=== PATIENT | male | born 1965 | race Caucasian/White ===

== ENCOUNTER → 2017-02-16 14:05 | Outpatient (CLI) | payer OTHER, SELFPAY ==
--- NOTE | 2017-02-16 14:13 | MR_ITS ---
MR cervical spine wo con HISTORY: Neck pain with right-sided arm pain with numbness and tingling ORDERING PHYSICIAN: Pro Sanchez MD PATIENT AGE: 51 years COMPARISON: Plain films of 01/27/2017. Prior CT scan 11/18/2010 TECHNIQUE: Standard multiplanar multiecho sequences are performed without contrast. 3-D MIP and myelographic images are also rendered and reviewed FINDINGS: The craniocervical junction has an unremarkable appearance. There is normal alignment. C2-C3: Unremarkable. C3-C4: Degenerative disc disease with mild concentric bulging disc. There is a small right paracentral and foraminal disc osteophyte complex causing right lateral recess and foraminal narrowing C4-C5: Unremarkable. C5-C6: Degenerative disc disease with disc desiccation and mild posterior subluxation of C5 of approximately 2 mm. There is decrease T1 and increased T2 signal involving the mid and inferior aspect of C5 and the superior aspect of C6 consistent with type I discogenic endplate changes. There is concentric bulging disc at this level with narrowing of the canal at 10 mm. There is bilateral uncovertebral hypertrophy with bilateral lateral recess and foraminal narrowing. There is minimal impingement upon the anterior aspect of the cord from the bulging disc and canal stenosis with minimal contour deformity C6-C7 and C7-T1 has an unremarkable appearance. There is some mild bulging disc at T2-T3. IMPRESSION: 1. Cervical spondylosis as described above with degenerative disc disease and bulging disc and uncovertebral hypertrophy. 2. C3-C4: Degenerative disc disease with mild concentric bulging disc. There is a small right paracentral and foraminal disc osteophyte complex causing right lateral recess and foraminal narrowing 3. C5-C6: Degenerative disc disease with disc desiccation and mild posterior subluxation of C5 of approximately 2 mm. There is decrease T1 and increased T2 signal involving the mid and inferior aspect of C5 and the superior aspect of C6 consistent with type I discogenic endplate changes. There is concentric bulging disc at this level with narrowing of the canal at 10 mm. There is bilateral uncovertebral hypertrophy with bilateral lateral recess and foraminal narrowing. There is minimal impingement upon the anterior aspect of the cord from the bulging disc and canal stenosis with minimal contour deformity
== END ==
PROVIDERS: Family Provider Emergency Medicine; PCP Emergency Medicine; Visit Provider Emergency Medicine
DX: M54.2 Cervicalgia (principal); R20.2 Paresthesia of skin
CPT/HCPCS: 72141

== ENCOUNTER 2017-02-17 15:03 | Emergency (ER) | payer OTHER, SELFPAY ==
[2017-02-17 15:26] VITALS: BMI 24.5
[2017-02-17 15:36] VITALS: BP 114/77; PULSE 106; RESP 18; TEMP 36.8; O2SAT 100; BMI 24.3
--- NOTE | 2017-02-17 16:57 | [facility].EDGENADL ---
ED Disposition Clinical Impression: Radiculopathy of cervical spine Disposition: Home, Self-Care Condition on Discharge: Good Instructions: DI for Chronic Pain -- Adult Additional Instructions: See Dr. Lorenzana for follow up next week; Rx medrol Dosepak Prescriptions: methylPREDNISolone [Medrol] 4 mg PO DAILY 5 Days #1 pack Referrals: Pro Lorenzana MD [Primary Care Provider] - Time of Disposition: 17:06 - Critical Care Critical Care Time: No Attestation: On 02/17/17, the high probability of a clinically significant, sudden or life threatening deterioration of the following system(s) required my full and direct attention, intervention and personal management. The time I documented below is in addition to time spent performing reported procedures but includes the following listed in this critical care notation. Medical Decision Making - Medical Records Medical records reviewed: Yes: I reviewed the patient's medical records. Vital Signs: 02/17/17 15:36 Temperature 98.3 F Temperature Source Oral Pulse Rate [Right Brachial] 106 H Respiratory Rate 18 Blood Pressure [Right Arm] 114/77 Blood Pressure Mean [Right Arm] 89 Blood Pressure Position [Right Arm] Sitting 02 Sat by Pulse Oximetry 100 Oxygen Delivery Method Room Air Orders (Tests/Meds): ORDERS Category Date Time Status Rapid Influenza A&B Antigens Stat Lab 02/17/17 16:31 Ordered - Pj Inquiry Pt receiving controlled substance: No Medical Decision Making Narrative: MRI results not available yet General Adult HPI - General Chief complaint: PAIN Stated complaint: Neck Pain, No Accident Time Seen by Provider: 02/17/17 17:01 Mode of Arrival: Ambulatory Source of Information: Patient Limitations: No Limitations Description of Symptoms (Recalled from ER Triage Doc. by RN): NECK PAIN; PT HAS BEEN EXPERIENCING NECK PAIN FOR WEEKS, FOR WHICH DR LORENZANA. HAS TREATED FOR WITH TYLENOL #3/CODEINE ; AND ORDERING AN MRI FOR DIAGNOSTICS. PT COMPLAINS OF RIGHT ARM NUMBNESS AND TIGHTNESS. - History of Present Illness HPI narrative: Patient reports a chronic history of neck pain ?6 months. He has recently undergone MRI of the cervical spine, results are still pending. No relief with Tylenol [address] Lorenzana. Has chronic numbness to the right upper extremity. He is right-handed. No new neurological symptoms. Shortness of breath. No fever. No acute trauma. Onset (ago): month(s) (6) Radiation: extremity - Related Data Previous Rx's Medication Instructions Recorded methylPREDNISolone [Medrol] 4 mg PO DAILY 5 Days #1 pack 02/17/17 Allergies Allergy/AdvReac Type Severity Reaction Status Date / Time hydrocodone [From LORTAB] Allergy Unknown ITCHING/HIVES/STOMACH Unverified 02/01/17 14:25 [facility] History - *Social History Educational Level: Attended High School Smoking Status: Current every day smoker Tobacco Type: cigarettes Alcohol Intake: never - Psychiatric History Expresses thoughts of harming self/others: None Suicide Plan Description: No Plan ROS Obtained: Yes All systems reviewed & no additional complaints except as noted Physical Exam - General General appearance: alert, in no apparent distress - Head Head exam: atraumatic, normocephalic, normal inspection - Eye Eye exam: Present: normal appearance, PERRL, EOMI - Neck Neck exam: Present: normal inspection, full ROM, trachea midline, tenderness, other (Muscle spasm, right trapezius. No vertebral tenderness.). Absent: meningismus, lymphadenopathy, thyromegaly - Chest Chest inspection: Present: normal inspection, symmetric chest wall rise. Absent: tenderness - Respiratory Respiratory exam: Present: normal lung sounds bilaterally. Absent: respiratory distress - Cardiovascular Cardiovascular exam: Present: regular rate, normal rhythm. Absent: JVD - Extremities Exam Extremities exam: Present: normal inspection, full ROM, normal c
--- NOTE | 2017-02-17 17:01 | ED_ITS ---
ED Disposition Clinical Impression: Radiculopathy of cervical spine Disposition: Home, Self-Care Condition on Discharge: Good Instructions: DI for Chronic Pain -- Adult Additional Instructions: See Dr. Lorenzana for follow up next week; Rx medrol Dosepak Prescriptions: methylPREDNISolone [Medrol] 4 mg PO DAILY 5 Days #1 pack Referrals: Pro Lorenzana MD [Primary Care Provider] - Time of Disposition: 17:06 - Critical Care Critical Care Time: No Attestation: On 02/17/17, the high probability of a clinically significant, sudden or life threatening deterioration of the following system(s) required my full and direct attention, intervention and personal management. The time I documented below is in addition to time spent performing reported procedures but includes the following listed in this critical care notation. Medical Decision Making - Medical Records Medical records reviewed: Yes: I reviewed the patient's medical records. Vital Signs: 02/17/17 15:36 Temperature 98.3 F Temperature Source Oral Pulse Rate [Right Brachial] 106 H Respiratory Rate 18 Blood Pressure [Right Arm] 114/77 Blood Pressure Mean [Right Arm] 89 Blood Pressure Position [Right Arm] Sitting 02 Sat by Pulse Oximetry 100 Oxygen Delivery Method Room Air Orders (Tests/Meds): ORDERS Category Date Time Status Rapid Influenza A&B Antigens Stat Lab 02/17/17 16:31 Ordered - Pj Inquiry Pt receiving controlled substance: No Medical Decision Making Narrative: MRI results not available yet General Adult HPI - General Chief complaint: PAIN Stated complaint: Neck Pain, No Accident Time Seen by Provider: 02/17/17 17:01 Mode of Arrival: Ambulatory Source of Information: Patient Limitations: No Limitations Description of Symptoms (Recalled from ER Triage Doc. by RN): NECK PAIN; PT HAS BEEN EXPERIENCING NECK PAIN FOR WEEKS, FOR WHICH DR LORENZANA. HAS TREATED FOR WITH TYLENOL #3/CODEINE ; AND ORDERING AN MRI FOR DIAGNOSTICS. PT COMPLAINS OF RIGHT ARM NUMBNESS AND TIGHTNESS. - History of Present Illness HPI narrative: Patient reports a chronic history of neck pain ?6 months. He has recently undergone MRI of the cervical spine, results are still pending. No relief with Tylenol [address] Lorenzana. Has chronic numbness to the right upper extremity. He is right-handed. No new neurological symptoms. Shortness of breath. No fever. No acute trauma. Onset (ago): month(s) (6) Radiation: extremity - Related Data Previous Rx's Medication Instructions Recorded methylPREDNISolone [Medrol] 4 mg PO DAILY 5 Days #1 pack 02/17/17 Allergies Allergy/AdvReac Type Severity Reaction Status Date / Time hydrocodone [From LORTAB] Allergy Unknown ITCHING/HIVES/STOMACH Unverified 02/01 14:25 [facility] History - *Social History Educational Level: Attended High School Smoking Status: Current every day smoker Tobacco Type: cigarettes Alcohol Intake: never - Psychiatric History Expresses thoughts of harming self/others: None Suicide Plan Description: No Plan ROS Obtained: Yes All systems reviewed & no additional complaints except as noted Physical Exam - General General appearance: alert, in no apparent distress - Head Head exam: atraumatic, normocephalic, normal inspection
[2017-02-17 17:30] VITALS: BP 142/80; PULSE 70; RESP 18
== END 2017-02-17 17:29 | disposition home or self-care (01) ==
PROVIDERS: Emergency Provider Emergency Medicine; Family Provider Emergency Medicine; PCP Emergency Medicine
DX: M54.12 Radiculopathy, cervical region (principal); Z88.6 Allergy status to analgesic agent; F17.210 Nicotine dependence, cigarettes, uncomplicated
CPT/HCPCS: 99282

== ENCOUNTER → 2017-02-23 11:42 | Outpatient (REF) | payer OTHER, SELFPAY | LOC: LAB 11:42 | PROVIDERS: Visit Provider Emergency Medicine | DX: R53.83 Other fatigue (principal) ==

== ENCOUNTER → 2017-04-19 16:24 | Outpatient (REF) | payer OTHER, SELFPAY ==
[2017-04-19 20:04] LABS: Amphetamine/Metha Screen,Urine Positive ng/mL (<1000); Barbiturates Screen,Urine Negative ng/mL (<200); Benzodiazepines Screen,Urine Negative ng/mL (200); Cannabinoid Screen,Urine Positive ng/mL (<50); Cocaine Screen,Urine Negative ng/g (<300); Methadone Screen,Urine Negative ng/mL (<300); Opiate Screen,Urine Positive ng/mL (<300); Phencyclidine Screen,Urine Negative ng/mL (<25)
[2017-04-24 12:12] LABS: Amphetamine Negative (Cutoff=500); Amphetamines Positive (.); Methamphetamine Positive (.)
[2017-04-24 23:20] LABS: Methamphetamine (GC/MS) 668 ng/mL (Cutoff=500)
== END ==
LOC: LAB 16:24
PROVIDERS: Visit Provider Emergency Medicine
DX: Z79.899 Other long term (current) drug therapy (principal); R89.2 Abnormal level of other drugs, medicaments and biological substances in specimens from other organs, systems and tissues
CPT/HCPCS: 80305; 80324

== ENCOUNTER 2018-05-10 20:04 | Inpatient (IN) ==
--- NOTE | 2018-05-10 20:26 | Emergency Department Note ---
ED Disposition Clinical Impression: Enteritis, Bilateral pulmonary infiltrates on CXR, Elevated erythrocyte sedimentation rate, Elevated C-reactive protein (CRP), Tobacco use, Severe sepsis CAP (community acquired pneumonia) Qualifiers: Laterality: unspecified laterality Qualified Code(s): J18.9 - Pneumonia, unspecified organism GERD (gastroesophageal reflux disease) Qualifiers: Esophagitis presence: esophagitis presence not specified Qualified Code(s): K21.9 - Gastro-esophageal reflux disease without esophagitis Leukocytosis Qualifiers: Leukocytosis type: unspecified Qualified Code(s): D72.829 - Elevated white blood cell count, unspecified Disposition: Admitted as Observation Condition on Discharge: Fair Instructions: DI for Acute Abdomen Referrals: Pro Sanchez MD [Primary Care Provider] - - Critical Care Critical Care Time: No Attestation: On 05/10/18, the high probability of a clinically significant, sudden or life threatening deterioration of the following system(s) required my full and direct attention, intervention and personal management. The time I documented below is in addition to time spent performing reported procedures but includes the following listed in this critical care notation. Medical Decision Making - Medical Records Medical records reviewed: Yes: I reviewed the patient's medical records. - Pj Inquiry Pt receiving controlled substance: No Vital Signs: 05/10/18 20:06 05/10/18 20:51 05/10/18 22:15 Temperature 97.9 F 98.4 F 98.3 F Temperature Source Oral Oral Oral Pulse Rate Pulse Rate [Right Brachial] 103 H 94 H 80 Respiratory Rate 21 17 16 Blood Pressure [Right Arm] 138/90 136/74 123/64 Blood Pressure Mean [Right Arm] 106 94 83 02 Sat by Pulse Oximetry 97 96 98 Oxygen Delivery Method Room Air Room Air Room Air 05/10/18 23:25 05/10/18 23:54 05/11/18 00:01 Temperature 97.9 F Temperature Source Oral Pulse Rate 77 Pulse Rate [Right Brachial] 84 91 H Respiratory Rate 15 15 Blood Pressure [Right Arm] 133/71 133/71 Blood Pressure Mean [Right Arm] 91 91 02 Sat by Pulse Oximetry 96 94 L Oxygen Delivery Method Room Air - Lab Data Lab results reviewed: Yes: I reviewed the patient's lab results. Lab Results 05/10/18 20:15: WBC 19.2 H, RBC 4.80, Hgb 15.4, Hct 45.5, MCV 94.8 H, MCH 32.1 H , MCHC 33.9, RDW 13.5, Plt Count 406, MPV 7.2 L, Neut % (Auto) 67.2, Lymph % (Auto) 24.1, [place] % (Auto) 7.6, Eos % (Auto) 0.6, Baso % (Auto) 0.5, Neut # (Auto) 12.9 H, Lymph # (Auto) 4.6 H, [place] # (Auto) 1.5 H, Eos # (Auto) 0.1, Baso # (Auto) 0.1, Total Counted 100, Neutrophils % (Manual) 70, Lymphocytes % (Manual) 27, Monocytes % (Manual) 2, Basophils % (Manual) 1.0, Platelet Estimate Normal, Anisocytosis 1+, Stomatocytes 1+ 05/10/18 20:15: Sodium 133 L, Potassium 4.0, Chloride 98, Carbon Dioxide 23, Anion Gap 16.0 H, BUN 8, Creatinine 1.00, Estimated Creat Clear 95, Estimated GFR 79, Est GFR ( Amer) 95, Glucose 120 H, Calcium 9.5, Total Bilirubin 0.9, AST 33, ALT 26, Alkaline Phosphatase 66, C-Reactive Protein 21.0 H, Total Protein 8.6 H, Albumin 3.4, Globulin 5.2 H, Albumin/Globulin Ratio 0.7 L, Amylase 37, Lipase 51 L 05/10/18 20:15: Influenza Type A Ag Negative, Influenza Type B Ag Negative 05/10/18 20:27: Lactate 1.6 05/10/18 21:15: ESR > 120 H 05/10/18 22:05: Urine Color Yellow, Urine Appearance Clear, Urine pH 7.5, Ur Specific Ney <= 1.005, Urine Protein Negative, Urine Glucose (UA) Negative, Urine Ketones Negative, Urine Blood Negative, Urine Nitrate Negative, Urine Bilirubin Negative, Urine Urobilinogen 0.2, Ur Leukocyte Esterase Negative, Urine WBC Occasional 05/10/18 23:59: Stool Occult Blood Negative Result diagrams: 05/10/18 20:15 05/10/18 20:15 Orders (Tests/Meds): ED MEDICATIONS Generic Name Dose Route Start Last Admin Trade Name Freq PRN Reason Stop Dose Admin Sodium Chloride 1,000 mls @ 999 mls/hr 05/10/18 20:30 05/10/18 20:30 Sod Chlor 0.9% 1000ml Bag IV 05/10/18 21:30 999 mls/hr .Q1H1M KIN Administration Sodium Chloride 1,000 mls @ 999 mls/hr 05/10/18 22:15 05/10/18 22:08 Sod Chlor 0.9% 1000ml Bag IV 05/10/18 23:15 999 mls/hr .Q1H1M KIN Administration Ceftriaxone Sodium 1 gm/ 50 mls @ 100 mls/hr 05/11/18 01:15 Sodium Chloride IV 05/25/18 01:14 Q24H KIN Protocol Azithromycin 500 mg/ Sodium 250 mls @ 250 mls/hr 05/11/18 01:15 Chloride IV 05/25/18 01:14 Q24H KIN Protocol Sodium Chloride 10 ml 05/10/18 20:16 Saline Flush 10ml Syringe IV 06/09/18 20:15 NEEDED PRN Maintain IV Site Sodium Chloride 3 ml 05/10/18 23:38 Sodium Chloride 3% 15ml Critical [facility] hospital 06/09/18 23:37 ONCE PRN INDUCE SPUTUM COLLECTION Discontinued Medications Generic Name Dose Route Start Last Admin Trade Name Freq PRN Reason Stop Dose Admin Albuterol/Ipratropium 3 ml 05/10/18 23:38 05/11/18 00:01 Duoneb 3ml Critical access hospital 05/10/18 23:39 3 ml ONCE ONE Administration Famotidine 20 mg 05/10/18 20:17 05/10/18 20:30 Pepcid 20mg/2ml Vial IV 05/10/18 20:18 20 mg ONCE ONE Administration Ioversol 75 ml 05/10/18 22:03 05/10/18 22:04 Rad-Optiray 350 100ml Vial IV 05/10/18 22:04 75 ml ONCE ONE Administration Protocol Ketorolac Tromethamine 30 mg 05/10/18 20:17 05/10/18 20:30 Toradol 30mg/Ml Vial IV 05/10/18 20:18 30 mg ONCE ONE Administration Methylprednisolone Sodium Succinate 125 mg 05/11/18 01:02 Solu-Medrol 125mg/2ml Vial IV 05/11/18 01:03 ONCE ONE Metoclopramide HCl 10 mg 05/10/18 20:17 05/10/18 20:30 Reglan 10mg/2ml Vial IVP 05/10/18 20:18 10 mg ONCE ONE Administration Ondansetron HCl 4 mg 05/10/18 20:17 05/10/18 20:30 Zofran 4mg/2ml Vial IV 05/10/18 20:18 4 mg ONCE ONE Administration Sodium Chloride 10 ml 05/10/18 22:03 05/10/18 22:04 Rad-Saline Flush 10ml Syringe IV 05/10/18 22:04 10 ml ONCE ONE Administration ORDERS Category Date Time Status CT abdomen pelvis w con Stat Cat Scan 05/10/18 20:[address] chest wo con Stat Cat Scan 05/10/18 23:38 Taken XR chest 2V Stat Exams 05/10/18 23:21 Taken Mycoplasma Pneumo IGM (Rapid) Stat Lab 05/11/18 01:03 Ordered Blood Culture Stat Micro 05/10/18 23:47 Received Sputum Culture & Gram Stain Stat Micro 05/11/18 00:05 Received - Radiology Data #1 Image(s): Chest Image Reviewed: Yes I reviewed the patient's radiology image Preliminary Findings: Abnormal (bilat changes ) - CT Data CT Scan: Abdomen, Pelvis, Chest Time Received: 01:[address] Reviewed: Yes: I have viewed the radiologist's interpretation Preliminary Findings: Abnormal (see report ) Nausea/Vomiting/Diarrhea HPI - General Chief complaint: Abdominal Pain Stated complaint: fever,abd pain Time Seen by Provider: 05/10/18 20:20 Mode of Arrival: Ambulatory Source of Information: Patient, Significant Other, Medical Record Limitations: No Limitations Description of Symptoms (Recalled from ER Triage Doc. by RN): Pt reports fever, vomiting that started last night but none today, and upper abdominal pain that started last night. Denies diarrhea. 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 upper abd pain with dec po intake over the last 2 days - no diarrhea MD complaint: nausea, vomiting, abdominal pain Onset (ago): day(s) Associated Abdominal Pain: Yes Location of pain: epigastric Severity: moderate Associated symptoms: denies other symptoms - Related Data Home Medications Medication Instructions Recorded Confirmed No Known Home Medications 05/10/18 05/10/18 Allergies Allergy/AdvReac Type Severity Reaction Status Date / Time No Known Allergies Allergy Verified 05/10/18 20:18 [facility] History - Hepatitis A Screen Drug use history?: No High risk sexual behaviors?: No History of sexually transmitted infection?: No Currently employed?: No Childcare worker?: No Do you have indoor plumbing?: Yes Do you have electricity?: Yes Attestation statement:: This patient has been screened for Hepatitis A risk factors. I have reviewed the patient's past medical history: Yes Medical History: Denies:: Cancer, Diabetes Mellitus Type 1, Diabetes Mellitus Type 2, MRSA Comment: Neck Pain Other Surgeries: Yes: Other Amputation: No Fractures: No Comment: choley - Social History Smoking Status: Current every day smoker Tobacco Type: cigarettes # Packs/Day (cigarettes): 1 Alcohol Intake: never Alcohol Intake Frequency:: a few times a week Substance Use Type: denies use Occupational Status: employed Housing: apartment Household Members: family - Psychiatric History Expresses thoughts of harming self/others: None Suicide Plan Description: No Plan Family Hx:: Coronary Artery Disease, Hyperlipidemia, Hypertension ROS Obtained: Yes All systems reviewed & no additional complaints - Constitutional Constitutional: Reports fever(s), Reports weakness - Eyes Eyes: Denies change in vision - ENT Ears, Nose, Mouth, and Throat: Denies sore throat - Cardiovascular Cardiovascular: Denies chest pain, Denies dyspnea - Respiratory Respiratory: Yes cough, Yes non-productive cough, No coughing up blood - Gastrointestinal Gastrointestingal: Reports: abdominal pain, nausea, vomiting. Denies: diarrhea, black, tarry stools - Genitourinary Male Genitourinary: Denies hematuria - Musculoskeletal Musculoskeletal: Denies joint pain, Denies joint swelling, Denies limited range of motion - Integumentary/Breasts Skin/Breast: Denies rash - Neurologic Neurologic: Denies seizure-like activity Physical Exam - General General appearance: alert - Head Head exam: normocephalic - Eye Eye exam: Present: PERRL, EOMI. Absent: scleral icterus - ENT ENT exam: Present: mucous membranes dry - Neck Neck exam: Present: trachea midline - Respiratory Respiratory exam: Present: other (rhonchi bilat ). Absent: respiratory distress - Cardiovascular Cardiovascular exam: Present: regular rate, systolic murmur. Absent: rubs - Abdominal Exam Abdominal exam: Present: soft - Extremities Exam Extremities exam: Absent: calf tenderness - Back Exam Back exam: Absent: CVA tenderness (R) - Neurological Exam Neurological exam: Present: alert, oriented X3, CN II-XII intact - Psychiatric Psychiatric exam: Present: normal affect - Skin Skin exam: Absent: rash
[2018-05-10 20:35] LABS: Basophils # 0.1 K/mm3 (0-0.2); Basophils % 0.5 % (0.1-2.0); Eosinophils # 0.1 K/mm3 (0.0-0.4); Eosinophils % 0.6 % (0.1-12.0); Hematocrit 45.5 % (42.0-52.0); Hemoglobin 15.4 g/dL (14.1-18.0); Lymphocytes # 4.6 K/mm3 (0.7-4.5); Lymphocytes % 24.1 % (10-50); Mean Corpuscular HGB Conc 33.9 g/dL (31.8-35.4); Mean Corpuscular Hemoglobin 32.1 pg (27.0-31.2); Mean Corpuscular Volume 94.8 fl (80-94); Mean Platelet Volume 7.2 fl (7.4-10.4); Monocytes # 1.5 K/mm3 (0.1-1.0); Monocytes % 7.6 % (1.7-9.3); Neutrophils # 12.9 K/mm3 (1.8-7.8); Neutrophils % 67.2 % (37.0-80.0); Platelet Count 406 K/mm3 (142-424); Red Cell Distribution Width 13.5 % (11.5-17.5); White Blood Count 19.2 K/mm3 (4.8-10.8)
[2018-05-10 20:46] LABS: Albumin Level 3.4 gm/dL (3.4-5.0); Albumin/Globulin Ratio 0.7 (1.1-1.8); Bilirubin,Total 0.9 mg/dL (0.2-1.0); Calcium 9.5 mg/dL (8.5-10.1); Globulin 5.2 gm/dl (1.3-3.2); Total Protein,Serum 8.6 gm/dL (6.4-8.2)
[2018-05-10 22:12] LABS: Microscopic, Urine URINE MICROSCOPIC (MICROSCOPIC)
[2018-05-10 22:16] LABS: Anisocytosis 1+; Lymphocytes % 27 % (10-50); Monocytes % 2 % (2-9); Neutrophils % 70 % (42-76); Stomatocytes 1+; Total Cells Counted 100
[2018-05-10 22:27] LABS: Appearance,Urine CLEAR (Clear); Bilirubin,Urine Negative (Negative); Blood, Urine Negative (Negative); Color,Urine YELLOW (Yellow); Glucose,Urine (UA) Negative (Negative); Ketones,Urine Negative (Negative); Leukocyte Esterase,Urine Negative (Negative); PH,Urine 7.5 (5.0-8.5); Protein,Urine Negative (Negative); Specific Gravity, Urine <= 1.005 (1.005-1.030); Urobilinogen,Urine 0.2 EU/dl (0.2)
[2018-05-10 22:44] LABS: WBC,Urine Occasional #/hpf (0-3)
[2018-05-11 04:38] LABS: Basophils % 0.4 % (0.1-2.0); Eosinophils % 0.3 % (0.1-12.0); Lymphocytes # 1.3 K/mm3 (0.7-4.5); Lymphocytes % 15.3 % (10-50); Mean Corpuscular HGB Conc 33.7 g/dL (31.8-35.4); Mean Corpuscular Hemoglobin 32.3 pg (27.0-31.2); Mean Corpuscular Volume 95.9 fl (80-94); Mean Platelet Volume 7.2 fl (7.4-10.4); Monocytes # 0.3 K/mm3 (0.1-1.0); Monocytes % 3.3 % (1.7-9.3); Neutrophils % 80.7 % (37.0-80.0); Platelet Count 349 K/mm3 (142-424); Red Blood Count 4.28 M/mm3 (4.60-6.20); Red Cell Distribution Width 13.7 % (11.5-17.5); White Blood Count 8.7 K/mm3 (4.8-10.8)
[2018-05-11 04:40] LABS: Anion Gap 17.5 mEq/L (5-15); Calcium 8.9 mg/dL (8.5-10.1); Potassium 4.5 mmoL/L (3.5-5.1)
[2018-05-11 04:41] LABS: Hemoglobin 13.9 g/dL (14.1-18.0)
--- NOTE | 2018-05-11 08:13 | Pharmacy Consult Notes ---
[facility] Pharmacy VTE Monitoring - Patient Demographics Admission date: 05/10/18 Report Date: 05/11/18 Time: 08:13 Allergies/Adverse Reactions: Patient Allergies No Known Allergies Allergy (Verified 05/10/18 20:18) Height: 1.8 m Weight: 76.43 kg Patient Problems: Current Active Problems Enteritis (Acute) CAP (community acquired pneumonia) (Acute) GERD (gastroesophageal reflux disease) (Acute) Bilateral pulmonary infiltrates on CXR (Acute) Elevated erythrocyte sedimentation rate (Acute) Elevated C-reactive protein (CRP) (Acute) Leukocytosis (Acute) Tobacco use (Acute) Severe sepsis (Acute) - VTE Risk Labs: VTE Related Lab Results Hgb 13.9 g/dL (14.1-18.0) L 05/11/18 04:20 Hct 41.0 % (42.0-52.0) L 05/11/18 04:20 Plt Count 349 K/mm3 (142-424) 05/11/18 04:20 BUN 9 mg/dL (7-18) 05/11/18 04:20 Creatinine 0.77 mg/dL (0.70-1.30) D 05/11/18 04:20 Estimated Creat Clear 123 mL/min (50-200) 05/11/18 04:20 VTE Score: 3 VTE Risk Level: Low Risk - Prophylaxis VTE Prophylaxis Ordered?: Yes Types of VTE Prophylaxis: TEDS Knee High Location of Applied Device: Bilateral Lower Extremeties - VTE Diagnosis Confirmed Treatment or plan recommended: Continue Current Treatment
--- NOTE | 2018-05-11 10:38 | Cardiology Report ---
PROCEDURE: 2-D M-mode and color Doppler study INDICATIONS FOR THE TEST: Chest painX COPD Heart Murmur Tobacco SmokingX Palpitations Fatigue Syncope Edema Hypertension Diabetes Mellitus Rheumatic Fever SOB KC Obesity Hyperlipidemia Family History HD Additional History PATIENT INFORMATION HEIGHT:70 WEIGHT:170 GENDER: Male B/P:123/64 2-D/M-MODE INTERPRETATION: 2-D MEASUREMENTS OBSERVED VALUES IN CMS Right Ventricular Dimension (RVDd) 1.5 Interventricular Septum (Thickness)(IVsd) 1.0 Left Ventricular Internal Dimensions(LVIDd) 5.7 Left Ventricular Posterior Wall (Thickness)(LVPWd) 1.2 Aortic Root 3.6 Aortic Cusp Separation 2.0 Left Atrial Dimensions (LAD) 2.9 2D 1. Left atrium is normal size, left ventricle is normal size, there is no concentric left ventricular hypertrophy, visually estimated ejection fraction of 55% with no regional wall motion abnormality. 2. The right atrium and right ventricle are normal size and contractility. 3. The aortic, mitral and tricuspid valvular grossly normal. 4. The pulmonic valve is poorly present. 6. No significant pericardial effusion noted DOPPLER INTERROGATION: Doppler interrogation of the aortic, mitral and tricuspid presence of mild mitral and tricuspid regurgitation, tricuspid regurgitation jet velocity is inadequate for calculation of the right ventricular systolic pressure, diastolic parameters are within normal range. CONCLUSION: 1. Normal left ventricular size, preserved left ventricular systolic function, visually estimated ejection fraction 55% with no regional wall motion abnormality, diastolic parameters are within normal range. 2. Mild mitral and tricuspid regurgitation 3. No significant pericardial effusion noted.
--- NOTE | 2018-05-11 15:41 | History & Physical Report ---
Addendum entered and electronically signed by Alexa Mancera APRN 05/11/18 15:48: francisca could be aspiration- add clindamycin to cover Addendum entered and electronically signed by Alexa Mancera APRN 05/11/18 15:46: discuss ct chest with dr espinosa. Original Note: *Admission Date: 05/10/18 *Chief complaint: abd pain *History of present illness: 53 yr old male presents to ed with c/o of upper gastric pain. 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 Pt admitted for abnormal chest xray with further work up. started on antibiotics. [facility] History I have reviewed the patient's past medical history: Yes Medical History: Denies:: Cancer, Diabetes Mellitus Type 1, Diabetes Mellitus Type 2, MRSA *Have you ever received a pneumonia vaccine?: No *Have you received a flu vaccine this season?: No Other Medical History: Reports: Arthritis Other Surgeries: Yes: Other Amputation: No Fractures: No - *Social History Educational Level: Attended High School Smoking Status: Current every day smoker Tobacco Type: cigarettes # Packs/Day (cigarettes): 1 Alcohol Intake: never Alcohol Intake Frequency:: a few times a week Substance Use Type: denies use *Occupational Status:: employed Housing: apartment Household Members: family *Travel in the last 8 weeks: None - Psychiatric History Expresses thoughts of harming self/others: None Suicide Plan Description: No Plan Family Hx:: Coronary Artery Disease, Hyperlipidemia, Hypertension Review of Systems - Review of Systems Review of systems:: pertinent systems reviewed and negative unless documented below - Constitutional Reports fever(s) - Eyes Denies blurry vision - ENT Denies change in voice - *Cardiovascular Denies chest pain at rest - *Respiratory Reports cough - *Gastrointestinal Denies change in bowel habits - *Genitourinary Denies urinary frequency - *Musculoskeletal Denies loss of height - Integumentary/Breasts Denies rash - *Neurologic Reports weakness, Denies seizure-like activity - Psychiatric Denies anxiety - Endocrine Denies heat intolerance - Hematologic/Lymphatic Denies enlarged lymph nodes - Allergic/Immunologic Denies hives Meds Home Medications Medication Instructions Recorded Confirmed Type Sildenafil Citrate [Sildenafil] 20 mg PO DIRECTED 05/11/18 05/11/18 History Allergies Allergy/AdvReac Type Severity Reaction Status Date / Time No Known Allergies Allergy Verified 05/10/18 20:18 Exam Vital signs and Labs for Last 24 Hours: Temp Pulse Resp BP Pulse Ox 97.6 F 90 18 158/92 H 100 05/11/18 11:30 05/11/18 12:00 05/11/18 11:30 05/11/18 11:30 05/11/18 11:30 Laboratory Results - last 24 hr 05/10/18 20:15: WBC 19.2 H, RBC 4.80, Hgb 15.4, Hct 45.5, MCV 94.8 H, MCH 32.1 H , MCHC 33.9, RDW 13.5, Plt Count 406, MPV 7.2 L, Neut % (Auto) 67.2, Lymph % (Auto) 24.1, [place] % (Auto) 7.6, Eos % (Auto) 0.6, Baso % (Auto) 0.5, Neut # (Auto) 12.9 H, Lymph # (Auto) 4.6 H, [place] # (Auto) 1.5 H, Eos # (Auto) 0.1, Baso # (Auto) 0.1, Total Counted 100, Neutrophils % (Manual) 70, Lymphocytes % (Manual) 27, Monocytes % (Manual) 2, Basophils % (Manual) 1.0, Platelet Estimate Normal, Anisocytosis 1+, Stomatocytes 1+ 05/10/18 20:15: Sodium 133 L, Potassium 4.0, Chloride 98, Carbon Dioxide 23, Anion Gap 16.0 H, BUN 8, Creatinine 1.00, Estimated Creat Clear 95, Estimated GFR 79, Est GFR ( Amer) 95, Glucose 120 H, Calcium 9.5, Total Bilirubin 0.9, AST 33, ALT 26, Alkaline Phosphatase 66, C-Reactive Protein 21.0 H, Total Protein 8.6 H, Albumin 3.4, Globulin 5.2 H, Albumin/Globulin Ratio 0.7 L, Amylase 37, Lipase 51 L 05/10/18 20:15: Influenza Type A Ag Negative, Influenza Type B Ag Negative 05/10/18 20:27: Lactate 1.6 05/10/18 21:15: ESR > 120 H 05/10/18 22:05: Urine Color Yellow, Urine Appearance Clear, Urine pH 7.5, Ur Specific [place] <= 1.005, Urine Protein Negative, Urine Glucose (UA) Negative, Urine Ketones Negative, Urine Blood Negative, Urine Nitrate Negative, Urine Bilirubin Negative, Urine Urobilinogen 0.2, Ur Leukocyte Esterase Negative, Urine WBC Occasional 05/10/18 23:59: Stool Occult Blood Negative 05/11/18 00:00: Mycoplasma pneumon IgM Non-reactive 05/11/18 04:20: Troponin I < 0.02 05/11/18 04:20: WBC 8.7 D, RBC 4.28 L, Hgb 13.9 L, Hct 41.0 L, MCV 95.9 H, MCH 32.3 H, MCHC 33.7, RDW 13.7, Plt Count 349, MPV 7.2 L, Neut % (Auto) 80.7 H, Lymph % (Auto) 15.3, [place] % (Auto) 3.3, Eos % (Auto) 0.3, Baso % (Auto) 0.4, Neut # (Auto) 7.0, Lymph # (Auto) 1.3, [place] # (Auto) 0.3, Eos # (Auto) 0.0, Baso # (Auto) 0.0 05/11/18 04:20: Sodium 140, Potassium 4.5, Chloride 106, Carbon Dioxide 21, Anion Gap 17.5 H, BUN 9, Creatinine 0.77 D, Estimated Creat Clear 123, Estimated GFR 107, Est GFR ( Amer) 129 D, Glucose 112 H, Calcium 8.9, Magnesium 2.0 05/11/18 07:25: Troponin I < 0.02 I & O for Last 24 hours: Intake & Output 05/09/18 05/10/18 05/11/18 05/12/18 11:59 11:59 11:59 11:59 Intake Total 2240 / 2240 Balance 2240 / 2240 Weight 168 lb 8 oz Microbiology Reports for the Last 24 Hours: Microbiology 05/11/18 00:05 Sputum - Expectorated Sputum Gram Stain - Final - Constitutional thin - *Routine HEENT Exam Head: Present: normocephalic Eye: Present: PERRL ENT: Present: mucous membranes moist - *Routine Neck Exam Present: supple. Absent: lymphadenopathy - *Routine Respiratory Exam Present: CTA bilaterally, diminished air movement - *Routine Cardiovascular Exam Present: RRR - *Routine Abdominal Exam Present: soft, normoactive bowel sounds. Absent: tenderness - *Routine Extremities Exam Absent: cyanosis, clubbing, edema - *Routine Skin Exam Present: warm. Absent: rash - *Routine Neurological Exam Present: alert, oriented X3 - Routine Psychiatric Exam Present: normal affect Assessment and Plan - Assessment and plan all Dx Assessment and Plan for all problems:: rounded with schuyler all orders per schuyler
--- NOTE | 2018-05-12 08:45 | Discharge Summary ---
General - General Admission date:: 05/11/18 Discharge date: 05/12/18 HPI HPI: 53 yr old male presents to ed with c/o of upper gastric pain. 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 Pt admitted for abnormal chest xray with further work up. started on antibiotics. Hospital Course Hospital Course: echo:CONCLUSION: 1. Normal left ventricular size, preserved left ventricular systolic function, visually estimated ejection fraction 55% with no regional wall motion abnormality, diastolic parameters are within normal range. 2. Mild mitral and tricuspid regurgitation 3. No significant pericardial effusion noted. ct chest:IMPRESSION: Multifocal groundglass opacities scattered throughout the pulmonary parenchyma some of which have a reticular appearance. This could be infectious or inflammatory. Pulmonary hemorrhage or edema could also have this appearance Mildly prominent mediastinal lymph nodes Gas and debris within the esophagus which may be seen with reflux Discussed with Dr. New he recommended more labs. Will discharge patient home today on Zithromax follow-up with Dr. New for test results. Will send CT scan to Dr. New to review. Objective Vital signs: Temp Pulse Resp BP Pulse Ox 98.1 F 80 18 150/80 H 98 05/12/18 08:00 05/12/18 08:00 05/12/18 08:00 05/12/18 08:00 05/12/18 08:00 no acute distress - *Routine HEENT Exam Head: Present: normocephalic Eye: Present: PERRL ENT: Present: mucous membranes moist - *Routine Respiratory Exam Present: CTA bilaterally - *Routine Cardiovascular Exam Present: RRR - *Routine Abdominal Exam Present: soft, normoactive bowel sounds. Absent: tenderness, distended - *Routine Extremities Exam Present: full ROM - *Routine Skin Exam Present: intact - *Routine Neurological Exam Present: alert, oriented X3 - Routine Psychiatric Exam Present: normal affect Results - Additional Comments Rounded with Dr. Sanchez all orders per Daniel DS: Diagnosis - Discharge Diagnosis (1) Bilateral pulmonary infiltrates on CXR Status: Acute (2) CAP (community acquired pneumonia) Status: Acute (3) Elevated C-reactive protein (CRP) Status: Acute (4) Elevated erythrocyte sedimentation rate Status: Acute (5) Enteritis Status: Acute (6) GERD (gastroesophageal reflux disease) Status: Acute (7) Leukocytosis Status: Acute Discharge Plan - Patient Discharge Instructions ACTIVITY: Continue current activity DIET: continue same diet Patient Instructions: DI for Pneumonia -- Adult, DI for Gastritis, DI for Sepsis -- Adult - Follow up Plan Follow up with: Pro Sanchez MD [Primary Care Provider] - 1 week Oz New MD [Consulting Physician] - 1 week Disposition: Home, Self-Halfway Medications: Home Medications Medication Instructions Recorded Confirmed Type Sildenafil Citrate [Sildenafil] 20 mg PO DIRECTED 05/11/18 05/11/18 History Azithromycin [Zithromax 250mg 250 mg PO DIRECTED #6 tab 05/12/18 Rx tab] Prescriptions/Medication Reconciliation: New predniSONE [Prednisone 20mg Tab] 20 mg PO BID #10 tab Azithromycin [Zithromax 250mg tab] 250 mg PO DIRECTED #6 tab Discontinued Sildenafil Citrate [Sildenafil] 20 mg PO DIRECTED
== END 2018-05-12 09:41 | disposition home or self-care (01) | DRG 195 ==
LOC: ER 20:04 → 2ND 20:04 → OBSVTOIN 05-11 01:30 → 2ND 05-11 01:34
PROVIDERS: ADMIT Emergency Medicine; ATTEND Emergency Medicine
CPT/HCPCS: 36415; 71020; 71046; 71250; 74177; 80048; 80053; 81001; 82150; 82272; 83605; 83690; 83735; 84484; 85007; 85025; 85651; 86140; 86256; 86580; 86606; 86612; 86698; 86738; 87040; 87070; 87077; 87205; 87275; 87276; 93306; 94640; 96365; 96366; 96367; 96375; 99285; G0328; G0378; J0456; J2405; Q9967; S0077

== ENCOUNTER → 2019-03-15 10:36 | Outpatient (CLI) | payer OTHER, SELFPAY ==
[2019-03-15 11:24] LABS: Basophils # 0.1 K/mm3 (0-0.2); Basophils % 1.1 % (0.1-2.0); Eosinophils # 0.2 K/mm3 (0.0-0.4); Eosinophils % 2.9 % (0.1-12.0); Hematocrit 41.1 % (42.0-52.0); Hemoglobin 13.7 g/dL (14.1-18.0); Lymphocytes # 3.3 K/mm3 (0.7-4.5); Lymphocytes % 42.6 % (10-50); Mean Corpuscular HGB Conc 33.3 g/dL (31.8-35.4); Mean Corpuscular Hemoglobin 32.6 pg (27.0-31.2); Mean Corpuscular Volume 97.8 fl (80-94); Mean Platelet Volume 7.8 fl (7.4-10.4); Monocytes # 0.4 K/mm3 (0.1-1.0); Monocytes % 5.6 % (1.7-9.3); Neutrophils # 3.8 K/mm3 (1.8-7.8); Platelet Count 303 K/mm3 (142-424); Red Cell Distribution Width 13.3 % (11.5-17.5); White Blood Count 7.8 K/mm3 (4.8-10.8)
[2019-03-15 13:11] LABS: Alanine Aminotransferase 47 U/L (12-78); Albumin Level 3.8 gm/dL (3.4-5.0); Albumin/Globulin Ratio 1.1 (1.1-1.8); Alkaline Phosphatase 48 U/L (46-116); Anion Gap 11.8 mEq/L (5-15); Aspartate Amino Transferase 29 U/L (15-37); Bilirubin,Total 0.3 mg/dL (0.2-1.0); Blood Urea Nitrogen 10 mg/dL (7-18); Carbon Dioxide 29 mmol/L (21.0-32.0); Chloride 107 mmol/L (98-107); Chol/HDL Ratio 2.7 (1-3.5); Cholesterol 142 mg/dL (140-200); Estimated Glomerular Filt Rate 89 ml/min (>60); Free T4 (Free Thyroxine) 1.02 ng/dl (0.76-1.46); GFR (African American) 108 ML/MIN (>60); Globulin 3.4 gm/dl (1.3-3.2); Glucose 98 mg/dL (74-106); HDL Cholesterol 53 mg/dL (27-67); LDL Cholesterol 77 mg/dL (0-130); Potassium 4.8 mmoL/L (3.5-5.1); Sodium 143 mmol/L (136-145); Thyroid Stimulating Hormone 1.08 uIU/ml (0.358-3.740); Total Protein,Serum 7.2 gm/dL (6.4-8.2); Triglycerides 59 mg/dL (30-200); VLDL Cholesterol 12 mg/dL (0-40)
[2019-03-15 13:18] LABS: Prostate Specific Ag Screen 0.8 ng/mL (0.0-4.0)
[2019-03-16 10:01] LABS: Hep A Ab, IgM Negative (Negative); Hepatitis B Core Antibody IgM Negative (Negative); Hepatitis B Surface Antigen Negative (Negative)
[2019-03-16 10:25] LABS: Ferritin 297 ng/mL (8-388)
[2019-03-16 11:28] LABS: Hepatitis C Antibody >11.0 s/co ratio (0.0-0.9)
[2019-03-17 04:08] LABS: Iron 138 ug/dL (38-169); UIBC 248 ug/dL (111-343)
[2019-03-17 11:04] LABS: Iron Saturation 36 % (15-55)
== END ==
PROVIDERS: PCP Emergency Medicine; Visit Provider Urology
DX: R10.9 Unspecified abdominal pain (principal); Z12.5 Encounter for screening for malignant neoplasm of prostate; D64.9 Anemia, unspecified
CPT/HCPCS: 36415; 80053; 80061; 80074; 82728; 83540; 83550; 84439; 84443; 85025; G0103

== ENCOUNTER → 2019-03-20 18:21 | Outpatient (CLI) | payer OTHER, SELFPAY ==
[2019-03-24 23:07] LABS: HCV Genotype Charge YES; Hepatitis C Genotype 3 (.)
== END ==
PROVIDERS: Visit Provider Emergency Medicine
DX: B19.20 Unspecified viral hepatitis C without hepatic coma (principal)
CPT/HCPCS: 87522; 87902

== ENCOUNTER → 2019-04-03 11:20 | Outpatient (CLI) | payer OTHER, SELFPAY ==
[2019-04-03 11:51] LABS: INR 0.97 (0.9-1.1); Prothrombin Time 10.1 seconds (9.4-11.8)
[2019-04-04 07:17] LABS: HIV Screen 4th Generation wRfx Non Reactive (Non Reactive); Hep A Ab, IgM Negative (Negative); Hep A Ab, Total Positive (Negative); Hep B Core Ab, Total Negative (Negative)
[2019-04-06 09:36] LABS: Hep B Surface Ab, Qual Reactive (.); Hepatitis B Surface Antigen Negative (Negative)
== END ==
PROVIDERS: Visit Provider Emergency Medicine
DX: B19.20 Unspecified viral hepatitis C without hepatic coma (principal)
CPT/HCPCS: 36415; 85610; 86703; 86704; 86706; 86708; 87340; G0432

== ENCOUNTER → 2019-04-12 11:30 | Outpatient (CLI) | payer OTHER, SELFPAY ==
--- NOTE | 2019-04-12 | CA_ITS ---
APPROVED REPORT Exam: Exercise Treadmill Technologist: Laney Baker, Ht: 5 ft 10 in Wt: 180 lbs BSA: 2.00 m2 HR: 66 bpm BP: 115/76 mmHg Indications: CP,SOA,PALPITATIONS Medical History Medical History: HTN Medications: Lisinopril,,,,, Albuterol,,,,, PaROXETINE,,,,, FluTICASONE,,,,, SilDENAFIL,,,,, Cardiac Risk Factors: HTN, FHX of CAD, Smoking Stress Test Details Test: Negrito HR Resting HR: 85 bpm Max Heart Rate (APMHR): 168 bpm Max HR Achieved: 163 bpm Target HR (85% APMHR): 142 bpm % of APMHR: 97 BP Resting BP: 115/76 mmHg Max BP: 194/86 mmHg ECG Clinical Exercise duration: 12:01 min Highest Stage Achieved: Exercise capacity: 12.8 METs Stress ECG Conclusion exercised 12:01 on Negrito protocol / no symptoms noted / frequent ectopic beats which are less frequent in the later stages of exercise. Ectopic beats appear to be atrial & junction origin. / within normal ST response to exercise 0.5mm horiz ST depression inferiorly & laterally in late recovery. Frequent ectopy otherwise normal / Myoview images reported seperately Test Summary RECOVERY 01:00 0.0 0.0 138 . . . Stop exercise at 12:01 REST . . . . . . . Sitting REST 09:24 0.0 0.0 85 . 115/ 76 . . Stage 1 01:00 10.0 1.7 95 . . . . Stage 1 02:00 10.0 1.7 102 . . . . Stage 1 03:00 10.0 1.7 107 . 165/ 75 . . Stage 2 01:00 12.0 2.5 116 . . . . Stage 2 02:00 12.0 2.5 117 . . . . Stage 2 03:00 12.0 2.5 115 . 175/ 82 . . Stage 3 01:00 14.0 3.4 127 . . . . Stage 3 02:00 14.0 3.4 133 . . . . Stage 3 03:00 14.0 3.4 135 . 184/ 82 . . Stage 4 01:00 16.0 4.2 147 . . . . Stage 4 . . . . . . . Cardiolite injected Stage 4 02:00 16.0 4.2 155 . . . . Stage 4 03:00 16.0 4.2 162 . . . . Stage 5 00:01 18.0 5.0 160 . . . Stop exercise at 12:01 RECOVERY 01:00 0.0 0.0 138 . . . . RECOVERY 02:00 0.0 0.0 119 . 194/ 86 . . RECOVERY 03:00 0.0 0.0 104 . 194/ 86 . . RECOVERY 04:00 0.0 0.0 100 . 170/ 97 . . RECOVERY 05:00 0.0 0.0 90 . 170/ 97 . . RECOVERY 06:00 0.0 0.0 86 . 143/ 90 . . RECOVERY 06:56 0.0 0.0 87 . 130/ 91 . . Electronically signed by : Mor Lee, 04/12/2019 16:34:24
--- NOTE | 2019-04-12 11:31 | NM_ITS ---
APPROVED REPORT Exam: Nuclear Stress Test Indication: chest pain..short of breath..palpitations..fatigue..dizziness Patient Location: Outpatient Stress Tech: Laney Baker [place] Tech:Tresa Gamino ARRPolo RT(R)(N) Ht: 5 ft 10 in Wt: 180 lbs HR: 66 bpm BP: 115/76 mmHg BSA: 2.00 m2 BMI: 25.8 History: chest pain..short of breath..palpitations..fatigue..dizziness Procedure: Patient exercised on Negrito protocol 12 minutes and sec, resting heart rate 66 bpm, resting blood pressure 115/76 mmHg, with exercise maximum heart rate achived was 163 bpm which is Greater than 85% % of the maximum predicted heart rate and blood pressure was 194/86 mmHg. Patient denied any complaint of chest pain. Patient has Good exercise capacity, achieved 12.8 METs of workload on treadmill, the blood pressure response to exercise was Adequate. Electrocardiogram Resting electrocardiogram showed sinus rhythm, with exercise there is less than 1.[address] segment depression noted from the baseline EKG. The EKG portion of the exercise Myoview is negative for ischemia. Frequent premature atrial complexes were also seen. Cardiac Stress and Resting SPECT Images: Cardiac Stress and Resting SPECT images were obtained using technetium 99m Myoview 32.8 mCi stress and 10.48 mCi at rest. Gated SPECT with analysis of segmental wall motion and calculation of the ejection fraction also done. Cardiac stress and resting SPECT images show a mild fixed defect anteroseptally with normal contractility to SPECT is likely secondary to soft tissue attenuation, no reversible ischemia seen. Computer derived ejection fraction 50% with no regional wall motion abnormality, right ventricle is normal size and contractility. Conclusion: 1. The EKG portion of the exercise Myoview is negative for ischemia, patient has good exercise capacity achieved 12.8 mets of workload on treadmill, the blood pressure response to exercise was adequate, there was no exercise-induced chest discomfort. 2. No scintigraphic evidence of reversible ischemia seen at this level of exercise, computer derived ejection fraction is 50% with no segmental wall motion abnormality, right ventricle is normal size and contractility. 3. Likely normal exercise Myoview study. Electronically signed by : Mor Lee, 04/12/2019 16:36:40
--- NOTE | 2019-04-12 13:33 | HMH.ITSHM ---
Current Home Medications as stated by this patient Cesar Wagner or bilingual sales representative. [] inhaler lisinopril
== END ==
PROVIDERS: PCP Emergency Medicine; Visit Provider Emergency Medicine
DX: R07.9 Chest pain, unspecified (principal)
CPT/HCPCS: 78452; 93017; A9502

== ENCOUNTER → 2019-06-24 13:51 | Outpatient (CLI) | payer OTHER, SELFPAY ==
[2019-06-24 14:32] LABS: Basophils # 0.1 K/mm3 (0-0.2); Basophils % 1.4 % (0.1-2.0); Eosinophils # 0.7 K/mm3 (0.0-0.4); Eosinophils % 7.7 % (0.1-12.0); Hematocrit 44.2 % (42.0-52.0); Hemoglobin 14.3 g/dL (14.1-18.0); Lymphocytes # 3.7 K/mm3 (0.7-4.5); Mean Corpuscular HGB Conc 32.4 g/dL (31.8-35.4); Mean Corpuscular Volume 98.7 fl (80-94); Mean Platelet Volume 7.7 fl (7.4-10.4); Monocytes # 0.6 K/mm3 (0.1-1.0); Monocytes % 6.6 % (1.7-9.3); Neutrophils # 4.3 K/mm3 (1.8-7.8); Neutrophils % 45.1 % (37.0-80.0); Platelet Count 314 K/mm3 (142-424); Red Blood Count 4.47 M/mm3 (4.60-6.20); Red Cell Distribution Width 13.7 % (11.5-17.5); White Blood Count 9.4 K/mm3 (4.8-10.8)
[2019-06-24 16:05] LABS: Chloride 104 mmol/L (98-107); Sodium 135 mmol/L (136-145)
[2019-06-24 16:08] LABS: Blood Urea Nitrogen 6 mg/dl (9-20); Calcium 9.3 mg/dl (8.4-10.2); Carbon Dioxide 26 mmol/L (22.0-30.0); Estimated Glomerular Filt Rate 118 ml/min (>60); GFR (African American) 143 ML/MIN (>60); Glucose 132 mg/dl (74-100)
[2019-06-25 17:15] LABS: Covid-19 Nasal PCR Sendout UK Not Detected
== END ==
PROVIDERS: PCP Emergency Medicine; Visit Provider Otolaryngology
DX: Z03.818 Encounter for observation for suspected exposure to other biological agents ruled out (principal); J34.2 Deviated nasal septum
CPT/HCPCS: 36415; 80048; 85025; U0003

== ENCOUNTER 2019-06-26 09:55 | Day surgery (SDC) | payer OTHER, SELFPAY ==
[2019-06-25 12:38] VITALS: BMI 24.3
[2019-06-26] VITALS (10 sets, daily range): BP systolic 137–145; BP diastolic 72–91; PULSE 78–85; RESP 16–20; TEMP 36.2–36.9; O2SAT 95–99
--- NOTE | 2019-06-26 12:02 | P.PN_ITS ---
[facility] Anesthesia Checklist - Structural Data Admitted From: Home Planned Operative Procedure/s: nasal septoplasty Consent for Planned Operative Procedure(s) Verified: Yes - Additional verifications Anesthesia Reactions: No Hx Blood Transfusions: No Blood Transfusion Reaction: No - Airway Assessment C-Spine Mobility Assessed: Yes TMJ Mobility Assessed: Yes Dentition: Partials - Neurological Assessment Level of Consciousness: Awake, Alert, Appropriate - Anesthesia Plan Anesthesia Risk discussed: Yes Anesthesia Plan: Verified ASA Class: II Anesthesia Type: General [facility] History I have reviewed the patient's past medical history: Yes Medical History: Reports:: Depression, Hypertension Denies:: Cancer, Diabetes Mellitus Type 1, Diabetes Mellitus Type 2, Internal Pacemaker, MRSA, Seizures *Have you ever received a pneumonia vaccine?: No *Have you received a flu vaccine this season?: No Other Medical History: Reports: Arthritis. Denies: Blood Transfusion Reaction Anesthesia experience/problems:: none Other Surgeries: Yes: Cholecystectomy, Colonoscopy, Other. No: Pacemaker Amputation: No Fractures: Yes - *Social History Educational Level: Attended High School Smoking Status: Current every day smoker Tobacco Type: cigarettes # Packs/Day (cigarettes): 1 Alcohol Intake: never Alcohol Intake Frequency:: holidays/special occasions only Substance Use Type: denies use, former substance user, heroin, crack/cocaine *Occupational Status:: unemployed Housing: house Household Members: family *Travel in the last 8 weeks: None - Psychiatric History Pschychiatric History:: Reports:: Depression Family Hx:: Cancer, Diabetes, Heart Attack
--- NOTE | 2019-06-26 13:32 | P.PN_ITS ---
[facility] Anesthesia Record Part I Intake, IV Amount: 1,500 Estimated blood loss (mL): 5 Urine output (mL): 0 Blood Products used (#): none Blood Pressure: 145/91 SaO2: 97 Pulse Rate: 82 Respiratory Rate: 20 Temperature: 98.5 F Patient is:: Drowsy, Stable Stable to PACU at:: 13:27
--- NOTE | 2019-06-26 13:46 | HMH.OPNOTE ---
Date of procedure: 06/26/19 Pre-op Diagnosis:: 1. Deviated nasal septum to the left with 90% airflow blockage 2. Bilateral hypertrophied inferior turbinates Post-op Diagnosis:: same Procedure performed:: 1. Nasal septoplasty 2. Bilateral submucous inferior turbinectomies Surgeon:: Rene Martini MD MUTUEL MACHINE OPERATOR:: Bony Edouardty Anesthesia: GETA Estimated blood loss (mL): 9 Operative findings:: same Operative note:: With the patient under general anesthesia having been given 2 g of Ancef and 12 mg of Decadron the face was prepped and draped. The eyes were protected with Steri-Strips. The nose was decongested with topical cocaine and 5 cc of 2% lidocaine with epi were injected into the nasal antral mckay as well as into the septum. There was a severe deviation of the nasal septum to the left with 90% nasal airflow blockage and to the right posterior with a very large spur of the vomer. A left hemitransfixion incision was made in the mucoperichondrium and mucoperiosteum was elevated from the quadrangular cartilage, maxillary crest, vomer and perpendicular plate of the ethmoid. The quadrangular cartilage was trimmed inferiorly, anteriorly, and posteriorly. The maxillary crest was straightened. A very large vomerine spur was removed, and the perpendicular plate of the ethmoid was straightened. When that was done the septum could be realigned in the midline, Surgicel snow was placed between the flaps and transfixion and hemitransfixion chromic sutures were used to hold the septum in the midline. Using similar instruments the right inferior turbinate was electrocoagulated and using the turbinectomy scissors a right submucous turbinectomy was done and the turbinate size was reduced by 50%. Similarly using the same instruments a left submucous turbinectomy was done and the turbinate size was reduced by 50%. Cautery was used to stop the bleeding blood loss for all of the procedure was less than 10 cc and completely stopped. Bacitracin ointment was placed in the nasal vestibules, a drip pad dressing was applied, and the patient was sent to recovery in good general condition. Condition: stable Disposition: PACU Complications:: none
--- NOTE | 2019-06-26 15:34 | P.PN_ITS ---
[facility] Anesthesia Record Part II Discharge Time: 13:57 Destination: Surgical Day Care (OP Surgery) PACU nurse assessment reviewed?: Yes Patient Condition:: Good Anesthesia Complications:: None Swallowing reflex intact?: Yes Cyanosis?: No Blood Pressure: 137/89 Pulse Rate: 78 Temperature: 97.2 F Mental Status: Alert & Oriented Pain level:: 8 Nausea and/or vomitting:: None Intake, IV Amount: 25
--- NOTE | 2019-06-27 09:39 | SUR.PHASEII ---
1420- Pt refused tylenol for pain. Was informed he had 2mg Dilaudid in PACU and that the only thing Dr Martini ordered was Tylenol for pain. Pt was upset and stated I wouldn't have had this surgery done if I knew I wasn't going to get pain medication. Informed pt that Dr Martini doesn't give anything for this procedure except Tylenol. Pt insisted on leaving.
== END 2019-06-26 14:40 | disposition home or self-care (01) ==
LOC: OR 09:57
PROVIDERS: PCP Emergency Medicine; Visit Provider Otolaryngology
PROC: (CPT 30520; principal; 2019-06-26 11:30)
DX: J34.2 Deviated nasal septum (principal); J34.3 Hypertrophy of nasal turbinates
CPT/HCPCS: 30520; 30140; 96375; J2405; J2710

== ENCOUNTER → 2019-07-20 15:05 | Outpatient (CLI) | payer OTHER, SELFPAY ==
[2019-07-20 15:46] LABS: Lipase 58 U/L (23-300)
[2019-07-20 19:47] LABS: Chloride 96 mmol/L (98-107); Potassium 3.7 mmoL/L (3.5-5.1); Sodium 136 mmol/L (136-145)
[2019-07-20 19:50] LABS: Alanine Aminotransferase 42 U/L (12-78); Albumin Level 4.5 g/dl (3.5-5.0); Albumin/Globulin Ratio 1.5 (1.1-1.8); Alkaline Phosphatase 74 U/L (38-126); Anion Gap 13.7 mEq/L (5-15); Aspartate Amino Transferase 66 U/L (17-59); Blood Urea Nitrogen 10 mg/dl (9-20); Carbon Dioxide 30 mmol/L (22.0-30.0); Estimated Glomerular Filt Rate 102 ml/min (>60); GFR (African American) 123 ML/MIN (>60); Globulin 3.1 g/dL (1.3-3.2); Total Protein,Serum 7.6 g/dl (6.3-8.2)
[2019-07-20 19:51] LABS: Calcium 9.5 mg/dl (8.4-10.2); Glucose 125 mg/dl (74-100)
== END ==
PROVIDERS: Visit Provider Emergency Medicine
DX: R10.9 Unspecified abdominal pain (principal); R11.2 Nausea with vomiting, unspecified
CPT/HCPCS: 80053; 83690

== ENCOUNTER → 2019-07-30 11:57 | Outpatient (CLI) | payer OTHER, SELFPAY ==
[2019-07-30 12:57] LABS: Basophils # 0.1 K/mm3 (0-0.2); Eosinophils # 0.3 K/mm3 (0.0-0.4); Hematocrit 44.6 % (42.0-52.0); Hemoglobin 14.7 g/dL (14.1-18.0); Lymphocytes # 3.6 K/mm3 (0.7-4.5); Lymphocytes % 29.5 % (10-50); Mean Corpuscular Hemoglobin 32.9 pg (27.0-31.2); Mean Corpuscular Volume 99.7 fl (80-94); Mean Platelet Volume 7.7 fl (7.4-10.4); Monocytes # 0.7 K/mm3 (0.1-1.0); Monocytes % 5.8 % (1.7-9.3); Neutrophils # 7.5 K/mm3 (1.8-7.8); Neutrophils % 61.8 % (37.0-80.0); Platelet Count 301 K/mm3 (142-424); Red Blood Count 4.48 M/mm3 (4.60-6.20); Red Cell Distribution Width 13.7 % (11.5-17.5); White Blood Count 12.2 K/mm3 (4.8-10.8)
[2019-07-30 14:08] LABS: Alanine Aminotransferase 35 U/L (12-78); Albumin Level 4.4 g/dl (3.5-5.0); Albumin/Globulin Ratio 1.5 (1.1-1.8); Alkaline Phosphatase 66 U/L (38-126); Anion Gap 13.2 mEq/L (5-15); Aspartate Amino Transferase 51 U/L (17-59); Bilirubin,Total 0.2 mg/dl (0.2-1.3); Blood Urea Nitrogen 8 mg/dl (9-20); Calcium 9.7 mg/dl (8.4-10.2); Carbon Dioxide 30 mmol/L (22.0-30.0); Chloride 98 mmol/L (98-107); Estimated Glomerular Filt Rate 102 ml/min (>60); GFR (African American) 123 ML/MIN (>60); Glucose 111 mg/dl (74-100); Potassium 5.2 mmoL/L (3.5-5.1); Sodium 136 mmol/L (136-145); Total Protein,Serum 7.4 g/dl (6.3-8.2)
[2019-07-30 15:59] LABS: INR 0.96 (0.9-1.1); Prothrombin Time 9.9 seconds (9.4-11.8)
[2019-08-04 01:19] LABS: HCV Genotype Charge YES; Hepatitis C Genotype 3 (.)
== END ==
PROVIDERS: Physician Assistant; Visit Provider Emergency Medicine
DX: R73.9 Hyperglycemia, unspecified (principal); B19.20 Unspecified viral hepatitis C without hepatic coma
CPT/HCPCS: 36415; 80053; 83036; 85025; 85610; 87522; 87902

== ENCOUNTER → 2019-08-13 17:56 | Outpatient (CLI) | payer OTHER, SELFPAY ==
[2019-08-13 18:09] LABS: Basophils # 0.1 K/mm3 (0-0.2); Basophils % 1.1 % (0.1-2.0); Eosinophils # 0.4 K/mm3 (0.0-0.4); Eosinophils % 3.7 % (0.1-12.0); Hematocrit 41.9 % (42.0-52.0); Hemoglobin 14.5 g/dL (14.1-18.0); Lymphocytes # 5.1 K/mm3 (0.7-4.5); Lymphocytes % 49.7 % (10-50); Mean Corpuscular HGB Conc 34.5 g/dL (31.8-35.4); Mean Corpuscular Hemoglobin 33.1 pg (27.0-31.2); Mean Corpuscular Volume 95.9 fl (80-94); Mean Platelet Volume 7.8 fl (7.4-10.4); Monocytes # 0.6 K/mm3 (0.1-1.0); Monocytes % 5.5 % (1.7-9.3); Neutrophils # 4.1 K/mm3 (1.8-7.8); Neutrophils % 39.9 % (37.0-80.0); Platelet Count 332 K/mm3 (142-424); Red Blood Count 4.37 M/mm3 (4.60-6.20); Red Cell Distribution Width 13.6 % (11.5-17.5); White Blood Count 10.3 K/mm3 (4.8-10.8)
[2019-08-13 18:18] LABS: INR 0.99 (0.9-1.1); Prothrombin Time 10.2 seconds (9.4-11.8)
[2019-08-13 19:02] LABS: Chloride 102 mmol/L (98-107); Sodium 137 mmol/L (136-145)
[2019-08-13 19:05] LABS: Alanine Aminotransferase 13 U/L (12-78); Albumin Level 4.2 g/dl (3.5-5.0); Albumin/Globulin Ratio 1.4 (1.1-1.8); Alkaline Phosphatase 66 U/L (38-126); Aspartate Amino Transferase 27 U/L (17-59); Bilirubin,Total 1.1 mg/dl (0.2-1.3); Blood Urea Nitrogen 8 mg/dl (9-20); Carbon Dioxide 29 mmol/L (22.0-30.0); Estimated Glomerular Filt Rate 118 ml/min (>60); GFR (African American) 143 ML/MIN (>60); Globulin 3.1 g/dL (1.3-3.2); Total Protein,Serum 7.3 g/dl (6.3-8.2)
[2019-08-13 19:06] LABS: Calcium 9.4 mg/dl (8.4-10.2); Glucose 109 mg/dl (74-100)
== END ==
PROVIDERS: Visit Provider Emergency Medicine
DX: B19.20 Unspecified viral hepatitis C without hepatic coma (principal)
CPT/HCPCS: 36415; 80053; 85025; 85610; 87522

== ENCOUNTER → 2019-08-28 12:51 | Outpatient (CLI) | payer OTHER, SELFPAY ==
[2019-08-28 13:25] LABS: Basophils # 0.2 K/mm3 (0-0.2); Basophils % 1.6 % (0.1-2.0); Eosinophils # 0.5 K/mm3 (0.0-0.4); Eosinophils % 5.5 % (0.1-12.0); Hematocrit 43.2 % (42.0-52.0); Hemoglobin 14.4 g/dL (14.1-18.0); Lymphocytes % 41.2 % (10-50); Mean Corpuscular HGB Conc 33.3 g/dL (31.8-35.4); Mean Corpuscular Hemoglobin 33.2 pg (27.0-31.2); Mean Corpuscular Volume 99.6 fl (80-94); Mean Platelet Volume 7.8 fl (7.4-10.4); Monocytes # 0.5 K/mm3 (0.1-1.0); Monocytes % 5.4 % (1.7-9.3); Neutrophils # 4.5 K/mm3 (1.8-7.8); Neutrophils % 46.2 % (37.0-80.0); Platelet Count 314 K/mm3 (142-424); Red Blood Count 4.34 M/mm3 (4.60-6.20); Red Cell Distribution Width 13.8 % (11.5-17.5); White Blood Count 9.8 K/mm3 (4.8-10.8)
[2019-08-28 13:41] LABS: Chloride 100 mmol/L (98-107)
[2019-08-28 13:42] LABS: Potassium 4.3 mmoL/L (3.5-5.1); Sodium 135 mmol/L (136-145)
[2019-08-28 13:44] LABS: Alanine Aminotransferase 13 U/L (12-78); Albumin Level 4.4 g/dl (3.5-5.0); Albumin/Globulin Ratio 1.6 (1.1-1.8); Alkaline Phosphatase 60 U/L (38-126); Anion Gap 13.3 mEq/L (5-15); Aspartate Amino Transferase 25 U/L (17-59); Bilirubin,Total 0.9 mg/dl (0.2-1.3); Blood Urea Nitrogen 12 mg/dl (9-20); Carbon Dioxide 26 mmol/L (22.0-30.0); Estimated Glomerular Filt Rate 102 ml/min (>60); GFR (African American) 123 ML/MIN (>60); Globulin 2.7 g/dL (1.3-3.2); Total Protein,Serum 7.1 g/dl (6.3-8.2)
[2019-08-28 13:45] LABS: Calcium 9.5 mg/dl (8.4-10.2); Glucose 98 mg/dl (74-100)
[2019-08-31 15:32] LABS: Vitamin B12 376 pg/mL (232-1245)
== END ==
PROVIDERS: Physician Assistant; Visit Provider Emergency Medicine
DX: B19.20 Unspecified viral hepatitis C without hepatic coma (principal); E53.8 Deficiency of other specified B group vitamins
CPT/HCPCS: 36415; 80053; 82607; 85025

== ENCOUNTER → 2019-10-18 17:41 | Outpatient (CLI) | payer OTHER, SELFPAY ==
[2019-10-18 18:27] LABS: Basophils # 0.1 K/mm3 (0-0.2); Basophils % 1.2 % (0.1-2.0); Eosinophils # 0.5 K/mm3 (0.0-0.4); Eosinophils % 4.6 % (0.1-12.0); Hemoglobin 14.1 g/dL (14.1-18.0); Lymphocytes # 4.3 K/mm3 (0.7-4.5); Lymphocytes % 41.8 % (10-50); Mean Corpuscular HGB Conc 34.3 g/dL (31.8-35.4); Mean Corpuscular Hemoglobin 33.1 pg (27.0-31.2); Mean Corpuscular Volume 96.5 fl (80-94); Mean Platelet Volume 7.8 fl (7.4-10.4); Monocytes # 0.7 K/mm3 (0.1-1.0); Monocytes % 6.5 % (1.7-9.3); Neutrophils # 4.7 K/mm3 (1.8-7.8); Neutrophils % 45.9 % (37.0-80.0); Platelet Count 347 K/mm3 (142-424); Red Blood Count 4.25 M/mm3 (4.60-6.20); Red Cell Distribution Width 13.7 % (11.5-17.5); White Blood Count 10.3 K/mm3 (4.8-10.8)
[2019-10-18 18:31] LABS: INR 0.96 (0.9-1.1); Prothrombin Time 9.9 seconds (9.4-11.8)
[2019-10-18 19:42] LABS: Chloride 103 mmol/L (98-107); Potassium 4.1 mmoL/L (3.5-5.1); Sodium 141 mmol/L (136-145)
[2019-10-18 19:44] LABS: Alanine Aminotransferase 13 U/L (12-78); Aspartate Amino Transferase 29 U/L (17-59); Bilirubin,Total 0.4 mg/dl (0.2-1.3); Blood Urea Nitrogen 9 mg/dl (9-20); Estimated Glomerular Filt Rate 70 ml/min (>60); GFR (African American) 85 ML/MIN (>60)
[2019-10-18 19:45] LABS: Albumin Level 4.5 g/dl (3.5-5.0); Albumin/Globulin Ratio 1.5 (1.1-1.8); Alkaline Phosphatase 60 U/L (38-126); Anion Gap 15.1 mEq/L (5-15); Carbon Dioxide 27 mmol/L (22.0-30.0); Glucose 119 mg/dl (74-100); Total Protein,Serum 7.5 g/dl (6.3-8.2)
== END ==
PROVIDERS: Visit Provider Emergency Medicine
DX: B19.20 Unspecified viral hepatitis C without hepatic coma (principal); Z51.81 Encounter for therapeutic drug level monitoring
CPT/HCPCS: 36415; 80053; 85025; 85610; 87522

== ENCOUNTER 2019-11-20 09:45 | Emergency (ER) | payer OTHER, SELFPAY ==
--- NOTE | 2019-11-20 09:51 | ECG_ITS ---
APPROVED REPORT Exam: Resting ECG HR:76 bpm ECG Measurements Heart Rate 76 AXES MO 140 P 61 QRSd 78 QRS 28 QT 374 T 34 QTc 420 Conclusion Normal sinus rhythm Normal ECG Electronically signed by : Bony Schneider, 11/23/2019 13:57:36
[2019-11-20 09:55] VITALS: BP 141/86; PULSE 77; RESP 15; TEMP 36.6; O2SAT 98; BMI 24.3
--- NOTE | 2019-11-20 10:00 | CT_ITS ---
PROCEDURE: CT CHEST WO CON Patch that CLINICAL INDICATION: pain, trauma Posttraumatic painBlunt trauma with injury and pain, contusion/abrasion or hematoma following injury COMPARISON: CT CHESTWO CT chest wo con from 05/11/2018 TECHNIQUE: Axial images obtained with sagittal and coronal reformats. All CT scans at the facility use one or more dose reduction, viz: automated exposure control, ma/kV adjustment per patient size (including targeted exams where dose is matched to indication, i.e. head), or iterative reconstruction technique. FINDINGS: Mediastinal and vascular evaluation is limited without IV contrast specially in the setting of trauma. Coronary artery calcifications noted. No evidence of pericardial effusion. Changes of COPD. No evidence of pneumothorax. There are scattered patchy areas of ground-glass attenuation in the right upper lobe inferiorly, right middle lobe peripherally right lung base, left upper lobe anteriorly, left lower lobe. There is volume loss of the left lower lobe with consolidation.. Atelectatic changes are present in the right lung base posteriorly. There are trace bilateral effusions. No obvious rib fracture is evident. There is a small amount fluid within the superior pericardial recess versus redundant pericardium not significantly changed. There has been a prior cholecystectomy. IMPRESSION: 1. Scattered bilateral ground-glass consolidation which is less extensive when compared to 05/11/2018 and could be inflammatory or infectious. 2. Volume loss of the left lower lobe with consolidation. Superimposed infection is considered. There are mild atelectatic changes in the right lung base with trace bilateral effusions. 3. No rib fracture apparent. Dictated by: Bj Stein MD 11/20/2019 11:08 Bj Stein MD in [place] 11/20/2019 11:08
[2019-11-20 10:19] LABS: Basophils # 0.1 K/mm3 (0-0.2); Eosinophils # 0.4 K/mm3 (0.0-0.4); Eosinophils % 4.2 % (0.1-12.0); Hematocrit 39.6 % (42.0-52.0); Hemoglobin 13.1 g/dL (14.1-18.0); Lymphocytes # 3.1 K/mm3 (0.7-4.5); Lymphocytes % 31.5 % (10-50); Mean Corpuscular Hemoglobin 32.6 pg (27.0-31.2); Mean Corpuscular Volume 98.7 fl (80-94); Mean Platelet Volume 7.3 fl (7.4-10.4); Monocytes # 0.7 K/mm3 (0.1-1.0); Monocytes % 7.1 % (1.7-9.3); Neutrophils # 5.5 K/mm3 (1.8-7.8); Neutrophils % 56.1 % (37.0-80.0); Platelet Count 325 K/mm3 (142-424); Red Blood Count 4.01 M/mm3 (4.60-6.20); Red Cell Distribution Width 13.1 % (11.5-17.5); White Blood Count 9.8 K/mm3 (4.8-10.8)
[2019-11-20 10:20] LABS: Chloride 99 mmol/L (98-107); Sodium 133 mmol/L (136-145)
[2019-11-20 10:21] LABS: Potassium 3.5 mmoL/L (3.5-5.1)
[2019-11-20 10:23] LABS: Blood Urea Nitrogen 7 mg/dl (9-20); Creatinine Clearance Estimated 135 mL/min (50-200); Estimated Glomerular Filt Rate 118 ml/min (>60); GFR (African American) 143 ML/MIN (>60)
[2019-11-20 10:24] LABS: Anion Gap 10.5 mEq/L (5-15); Calcium 9.3 mg/dl (8.4-10.2); Carbon Dioxide 27 mmol/L (22.0-30.0); Glucose 123 mg/dl (74-100)
[2019-11-20 10:37] LABS: Troponin I < 0.01 ng/ml (0.00-0.034)
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
[2019-11-20 11:34] VITALS: BP 135/76; PULSE 70; RESP 15; TEMP 36.6; O2SAT 98
== END 2019-11-20 11:35 | disposition home or self-care (01) ==
PROVIDERS: Emergency Provider Emergency Medicine; PCP Emergency Medicine
DX: S29.8XXA Other specified injuries of thorax, initial encounter (principal); S23.41XA Sprain of ribs, initial encounter; W22.8XXA Striking against or struck by other objects, initial encounter; Y92.73 Farm field as the place of occurrence of the external cause; I10 Essential (primary) hypertension; F33.1 Major depressive disorder, recurrent, moderate; F17.210 Nicotine dependence, cigarettes, uncomplicated; Z79.899 Other long term (current) drug therapy; Z90.49 Acquired absence of other specified parts of digestive tract
CPT/HCPCS: 71250; 80048; 84484; 85025; 93005; 96374; 96375; 96376; 99283; J2405

== ENCOUNTER 2020-09-13 14:04 | Emergency (ER) | payer OTHER, SELFPAY ==
[2020-09-13 14:05] VITALS: BP 175/109; PULSE 104; RESP 16; TEMP 36.7; O2SAT 100; BMI 22.2
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
[2020-09-13 17:00] VITALS: BP 121/74; PULSE 71; RESP 16; TEMP 36.8; O2SAT 98
== END 2020-09-13 17:00 | disposition home or self-care (01) ==
PROVIDERS: Emergency Provider Family Medicine; PCP Emergency Medicine
DX: M25.512 Pain in left shoulder (principal); I10 Essential (primary) hypertension; F33.1 Major depressive disorder, recurrent, moderate; F17.210 Nicotine dependence, cigarettes, uncomplicated; W22.8XXA Striking against or struck by other objects, initial encounter; Y92.89 Other specified places as the place of occurrence of the external cause
CPT/HCPCS: 73030; 73080; 99282

== ENCOUNTER 2020-11-24 07:35 | Emergency (ER) | payer OTHER, SELFPAY ==
--- NOTE | 2020-11-24 | ECG_ITS ---
APPROVED REPORT Exam: Resting ECG HR:52 bpm ECG Measurements Heart Rate 52 AXES RI 138 P 82 QRSd 72 QRS 37 QT 426 T 60 QTc 396 Conclusion Sinus bradycardia Otherwise normal ECG Electronically signed by : Bony Schneider MD 11/24/2020 21:19:39
[2020-11-24 07:46] VITALS: BP 167/95; PULSE 54; RESP 30; O2SAT 98; BMI 22.9
--- NOTE | 2020-11-24 07:56 | CT_ITS ---
PROCEDURE: CT ABDOMEN PELVIS WO CON CLINICAL INDICATION: r/o stone Left sided pain COMPARISON: CT ABDPELW CT abdomen pelvis w con from 05/10/2018 TECHNIQUE: Axial images obtained with sagittal and coronal reformats. All CT scans at the facility use one or more dose reduction, viz: automated exposure control, ma/kV adjustment per patient size (including targeted exams where dose is matched to indication, i.e. head), or iterative reconstruction technique. FINDINGS: LOWER THORAX: There are atelectatic changes in the left lower lobe posteriorly ABDOMEN & PELVIS: No focal liver lesions. Prior cholecystectomy with metallic artifact from the surgical clips. The spleen, adrenal glands, and pancreas have an unremarkable appearance. There is a small hiatal hernia. There is mild left hydronephrosis. There are stones present in the lower pole of the left kidney with the largest stone or cluster of stones measuring 5 x 3 mm. There is mild to moderate left hydroureter secondary to a 6 x 4 mm stone in the distal left ureter approximately 3 cm proximal to the ureterovesical junction.. No intestinal obstruction or free air. No evidence of appendicitis. There are few colonic diverticula but no evidence of diverticulitis. There are few scattered air-fluid levels within nondistended small bowel. There is mild prominence of the seminal vesicles. No acute bony anomalies. There is anterior angulation of the coccyx which may represent an old injury forming at approximately 90 degree angle with the sacrum. Small sclerotic focus is present in the greater trochanter on the left and could be due to small bone island. IMPRESSION: 1. 6 mm obstructing left distal ureteral stone causing moderate left hydronephrosis and hydroureter with left-sided nephrolithiasis. 2. Other nonacute findings as described above. 3. Left lower lobe atelectasis. Dictated by: Bj Stein MD 11/24/2020 08:39 Bj Stein MD in [place] 11/24/2020 08:39
[2020-11-24 08:10] LABS: Basophils # 0.2 K/mm3 (0-0.2); Basophils % 2.1 % (0.1-2.0); Eosinophils # 0.2 K/mm3 (0.0-0.4); Eosinophils % 1.9 % (0.1-12.0); Hematocrit 45.3 % (42.0-52.0); Hemoglobin 14.1 g/dL (14.1-18.0); Lymphocytes % 42.5 % (10-50); Mean Corpuscular HGB Conc 31.1 g/dL (31.8-35.4); Mean Corpuscular Hemoglobin 30.7 pg (27.0-31.2); Mean Corpuscular Volume 98.8 fl (80-94); Mean Platelet Volume 8.3 fl (7.4-10.4); Monocytes # 0.5 K/mm3 (0.1-1.0); Monocytes % 4.9 % (1.7-9.3); Neutrophils # 4.5 K/mm3 (1.8-7.8); Neutrophils % 48.5 % (37.0-80.0); Platelet Count 348 K/mm3 (142-424); Red Blood Count 4.58 M/mm3 (4.60-6.20); Red Cell Distribution Width 15.2 % (11.5-17.5); White Blood Count 9.3 K/mm3 (4.8-10.8)
[2020-11-24 08:27] LABS: Alanine Aminotransferase 7 U/L (12-78); Albumin Level 1.2 g/dl (3.5-5.0); Albumin/Globulin Ratio 0.7 (1.1-1.8); Alkaline Phosphatase 32 U/L (38-126); Anion Gap 3.5 mEq/L (5-15); Aspartate Amino Transferase 14 U/L (17-59); Blood Urea Nitrogen 2 mg/dl (9-20); Creatinine Clearance Estimated 438 mL/min (50-200); Estimated Glomerular Filt Rate 501 ml/min (>60); GFR (African American) 606 ML/MIN (>60); Globulin 1.8 g/dL (1.3-3.2); Glucose 71 mg/dl (74-100); Sodium 145 mmol/L (136-145)
--- NOTE | 2020-11-24 08:28 | HMH.EDGENADL ---
ED Disposition Clinical Impression: Kidney stone on left side Disposition: Home, Self-Care Condition on Discharge: Good Instructions: DI for Kidney Stones Prescriptions: Hydrocod/Acet 5/325 mg [[place] 5/325mg tablet] 1 tab PO Q6HP PRN #10 tab PRN Reason: Moderate Pain Transmission Status: Sent to [facility] Tamsulosin HCl [Flomax 0.4mg capsule] 0.4 mg PO DAILY #10 cap Transmission Status: Pending to [facility] Ondansetron [Zofran 4mg ODT] 4 mg PO BIDP PRN #10 tab PRN Reason: Nausea Transmission Status: Pending to [facility] Referrals: Pro Sanchez MD [Primary Care Provider] - - Critical Care Critical Care Time: No Attestation: On 11/24/20, the high probability of a clinically significant, sudden or life threatening deterioration of the following system(s) required my full and direct attention, intervention and personal management. The time I documented below is in addition to time spent performing reported procedures but includes the following listed in this critical care notation. Medical Decision Making - Medical Records Medical records reviewed: Yes: I reviewed the patient's medical records. - Pj Inquiry Pt receiving controlled substance: Yes Pj was queried for this patient: Yes Reference #:: [id number] Risks and benefits of using a controlled substance: were discussed with pt by me Vital Signs: 11/24/20 07:46 11/24/20 09:00 11/24/20 09:30 Pulse Rate 51 L 51 L Pulse Rate [Radial] 54 L Respiratory Rate 30 H 20 20 Blood Pressure 143/78 H 155/90 H Blood Pressure [Right Arm] 167/95 H Blood Pressure Mean 102 111 Blood Pressure Mean [Right Arm] 119 Blood Pressure Position [Right Arm] Sitting 02 Sat by Pulse Oximetry 98 99 99 Oxygen Delivery Method Room Air - Lab Data Lab Results 11/24/20 08:00: WBC 9.3, RBC 4.58 L, Hgb 14.1, Hct 45.3, MCV 98.8 H, MCH 30.7, MCHC 31.1 L, RDW 15.2, Plt Count 348, MPV 8.3, Neut % (Auto) 48.5, Lymph % (Auto) 42.5, [place] % (Auto) 4.9, Eos % (Auto) 1.9, Baso % (Auto) 2.1 H, Neut # (Auto) 4.5, Lymph # (Auto) 4.0, [place] # (Auto) 0.5, Eos # (Auto) 0.2, Baso # (Auto) 0.2 11/24/20 08:00: Sodium 145, Potassium 1.5 L*, Chloride 133 H, Carbon Dioxide 10 L, Anion Gap 3.5 L, BUN 2 L, Creatinine 0.20 L, Estimated Creat Clear 438 H, Estimated GFR 501, Est GFR ( Amer) 606, Glucose 71 L, Calcium 3.7 L*, Total Bilirubin < 0.1 L, AST 14 L, ALT 7 L, Alkaline Phosphatase 32 L, Total Protein 3.0 L D, Albumin 1.2 L, Globulin 1.8, Albumin/Globulin Ratio 0.7 L 11/24/20 08:00: Troponin I < 0.01 11/24/20 10:03: Sodium 141, Potassium 4.0 D, Chloride 110 H, Carbon Dioxide 28, Anion Gap 7.0, BUN 6 L D, Creatinine 0.50 L D, Estimated Creat Clear 175, Estimated GFR 174, Est GFR ( Amer) 210 D, Glucose 105 H D, Calcium 8.4 11/24/20 10:10: Urine Color [place], Urine Appearance Sl cloudy, Urine pH 8.0, Ur Specific [place] 1.015, Urine Protein Trace, Urine Glucose (UA) Negative, Urine Ketones Negative, Urine Blood 3+, Urine Nitrate Negative, Urine Bilirubin Negative, Urine Urobilinogen 0.2, Ur Leukocyte Esterase Negative, Urine RBC 5-10, Urine WBC Occasional, Ur Squamous Epith Cells None, Urine Bacteria None Result diagrams: 11/24/20 08:00 11/24/20 10:03 Orders (Tests/Meds): ED MEDICATIONS Discontinued Medications Generic Name Dose Route Start Last Admin Trade Name Freq PRN Reason Stop Dose Admin Hydromorphone HCl 1 mg 11/24/20 07:57 11/24/20 07:40 Hydromorphone 2mg/Ml Syringe IV 11/24/20 07:58 1 mg ONCE ONE Administration Hydromorphone HCl 1 mg 11/24/20 07:57 11/24/20 07:55 Hydromorphone 2mg/Ml Syringe IV 11/24/20 07:58 1 mg ONCE ONE Administration Sodium Chloride 1,000 mls @ 999 mls/hr 11/24/20 09:00 11/24/20 09:00 Sod Chlor 0.9% 1000ml Bag IV 11/24/20 10:00 999 mls/hr .Q1H1M KIN Administration Ketorolac Tromethamine 30 mg 11/24/20 07:58 11/24/20 07:40 Ketorolac 30mg/Ml Vial
[2020-11-24 09:00] VITALS: BP 143/78; PULSE 51; RESP 20; O2SAT 99
[2020-11-24 09:30] VITALS: BP 155/90; PULSE 51; RESP 20; O2SAT 99
[2020-11-24 09:52] LABS: Bilirubin,Total < 0.1 mg/dl (0.2-1.3)
[2020-11-24 09:55] LABS: Potassium 1.5 mmoL/L (3.5-5.1)
[2020-11-24 09:56] LABS: Carbon Dioxide 10 mmol/L (22.0-30.0); Chloride 133 mmol/L (98-107)
[2020-11-24 10:15] LABS: Microscopic, Urine URINE MICROSCOPIC (MICROSCOPIC)
[2020-11-24 10:27] LABS: Appearance,Urine SL CLOUDY (Clear); Bilirubin,Urine Negative (Negative); Blood, Urine 3+ (Negative); Color,Urine ORANGE (Yellow); Glucose,Urine (UA) Negative (Negative); Ketones,Urine Negative (Negative); Leukocyte Esterase,Urine Negative (Negative); Nitrate,Urine Negative (Negative); Protein,Urine TRACE (Negative); Specific Gravity, Urine 1.015 (1.005-1.030); Urobilinogen,Urine 0.2 EU/dl (0.2)
[2020-11-24 10:30] LABS: Blood Urea Nitrogen 6 mg/dl (9-20); Calcium 8.4 mg/dl (8.4-10.2); Carbon Dioxide 28 mmol/L (22.0-30.0); Chloride 110 mmol/L (98-107); Creatinine Clearance Estimated 175 mL/min (50-200); Estimated Glomerular Filt Rate 174 ml/min (>60); GFR (African American) 210 ML/MIN (>60); Glucose 105 mg/dl (74-100); Sodium 141 mmol/L (136-145)
[2020-11-24 10:35] LABS: Troponin I < 0.01 ng/ml (0.00-0.034)
[2020-11-24 10:45] LABS: WBC,Urine Occasional #/hpf (0-3)
[2020-11-24 10:51] LABS: Calcium 3.7 mg/dl (8.4-10.2)
--- NOTE | 2020-11-24 11:31 | PC.NURSE ---
Dr Orourke spoke with Dr Collado
[2020-11-24 11:55] VITALS: BP 152/89; PULSE 72; RESP 16; TEMP 36.6; O2SAT 98
== END 2020-11-24 11:57 | disposition home or self-care (01) ==
PROVIDERS: Emergency Provider Emergency Medicine; PCP Emergency Medicine
DX: N13.39 Other hydronephrosis (principal); N20.0 Calculus of kidney; I10 Essential (primary) hypertension; F33.1 Major depressive disorder, recurrent, moderate; F17.210 Nicotine dependence, cigarettes, uncomplicated
CPT/HCPCS: 74176; 80048; 80053; 81001; 84484; 85025; 93005; 96365; 96366; 96375; 96376; 99283; J2405

== ENCOUNTER 2020-12-15 00:38 | Emergency (ER) | payer OTHER, SELFPAY ==
[2020-12-15] VITALS (7 sets, daily range): BP systolic 140–172; BP diastolic 82–97; PULSE 61–98; RESP 16–22; TEMP 36.6–36.7; O2SAT 99–100; BMI 19.5
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
--- NOTE | 2020-12-15 00:55 | HMH.EDGENADL ---
ED Disposition Clinical Impression: Nephrolithiasis Disposition: Home, Self-Care Condition on Discharge: Good Instructions: DI for Urinary Tract Infection (UTI), DI for Urinary Tract Infection in Children Additional Instructions: Follow-up with urology in clinic today. You should call first thing this morning to schedule an appointment. Take Flomax as prescribed. Take Zofran as needed for nausea and vomiting and Toradol as needed for pain. These medications were sent to your pharmacy. Return to the emergency department for any new or worsening symptoms. Prescriptions: Ketorolac Tromethamine [Toradol 10mg tablet] 10 mg PO Q6HP PRN 3 Days #12 tab MDD 40mg/day PRN Reason: Moderate To Severe Pain Transmission Status: Pending to [facility] Tamsulosin HCl [Flomax 0.4mg capsule] 0.4 mg PO HS #30 cap Transmission Status: Pending to [facility] Ondansetron [Zofran 4mg ODT] 4 mg PO BIDP PRN 3 Days #6 tab PRN Reason: Nausea And Vomiting Transmission Status: Pending to [facility] Referrals: Pro Sanchez MD [Primary Care Provider] - Mason Rodriguez MD [Staff Physician] - - Critical Care Critical Care Time: No Attestation: On 12/15/20, the high probability of a clinically significant, sudden or life threatening deterioration of the following system(s) required my full and direct attention, intervention and personal management. The time I documented below is in addition to time spent performing reported procedures but includes the following listed in this critical care notation. Medical Decision Making - Pj Inquiry Pt receiving controlled substance: No Vital Signs: 12/15/20 00:38 12/15/20 00:49 12/15/20 01:00 Temperature 97.9 F Temperature Source Oral Pulse Rate 66 61 Pulse Rate [Right] 98 H Respiratory Rate 22 Blood Pressure 153/82 H 172/97 H Blood Pressure [Right Arm] 153/82 H Blood Pressure Mean 115 122 Blood Pressure Mean [Right Arm] 105 02 Sat by Pulse Oximetry 100 99 100 Oxygen Delivery Method Room Air Room Air Room Air 12/15/20 01:30 12/15/20 02:00 12/15/20 02:30 Temperature Temperature Source Pulse Rate 81 80 80 Pulse Rate [Right] Respiratory Rate 18 18 Blood Pressure 140/94 H 165/97 H 160/94 H Blood Pressure [Right Arm] Blood Pressure Mean 109 119 120 Blood Pressure Mean [Right Arm] 02 Sat by Pulse Oximetry 100 99 Oxygen Delivery Method Room Air - Lab Data Lab Results 12/15/20 00:47: WBC 11.0 H, RBC 4.71, Hgb 14.7, Hct 44.8, MCV 95.0 H, MCH 31.2, MCHC 32.9, RDW 15.2, Plt Count 442 H, MPV 7.7, Neut % (Auto) 45.7, Lymph % (Auto) 41.6, [place] % (Auto) 8.3, Eos % (Auto) 2.3, Baso % (Auto) 2.2 H, Neut # (Auto) 5.0, Lymph # (Auto) 4.6 H, [place] # (Auto) 0.9, Eos # (Auto) 0.3, Baso # (Auto) 0.2 12/15/20 00:47: Sodium 140, Potassium 3.9, Chloride 100, Carbon Dioxide 31 H, Anion Gap 12.9, BUN 10, Creatinine 0.80, Estimated Creat Clear 96, Estimated GFR 101, Est GFR ( Amer) 122, Glucose 120 H, Calcium 9.8, Total Bilirubin 0.6, AST 60 H, ALT 95 H, Alkaline Phosphatase 107, Total Protein 8.5 H D, Albumin 4.4, Globulin 4.1 H, Albumin/Globulin Ratio 1.1 12/15/20 02:47: Urine Color Yellow, Urine Appearance Clear, Urine pH 6.5, Ur Specific [place] 1.010, Urine Protein Negative, Urine Glucose (UA) Negative, Urine Ketones Negative, Urine Blood 3+, Urine Nitrate Negative, Urine Bilirubin Negative, Urine Urobilinogen 0.2, Ur Leukocyte Esterase Trace, Urine RBC 10-20, Urine WBC 5-10 Result diagrams: 12/15/20 00:47 12/15/20 00:47 Orders (Tests/Meds): ED MEDICATIONS Generic Name Dose Route Start Last Admin Trade Name Freq PRN Reason Stop Dose Admin Lactated Ringer's 1,000 mls @ 999 mls/hr 12/15/20 01:00 12/15/20 01:00 Lactated Ringer's 1000 Ml Bag IV 12/15/20 02:00 999 mls/hr .Q1H1M KIN Administration Discontinued Medications Generic Name Dose Route Start Last Admin Trade Name Freq PRN Reason Stop Dose
[2020-12-15 01:05] LABS: Basophils # 0.2 K/mm3 (0-0.2); Basophils % 2.2 % (0.1-2.0); Eosinophils # 0.3 K/mm3 (0.0-0.4); Eosinophils % 2.3 % (0.1-12.0); Hematocrit 44.8 % (42.0-52.0); Hemoglobin 14.7 g/dL (14.1-18.0); Lymphocytes # 4.6 K/mm3 (0.7-4.5); Lymphocytes % 41.6 % (10-50); Mean Corpuscular HGB Conc 32.9 g/dL (31.8-35.4); Mean Corpuscular Hemoglobin 31.2 pg (27.0-31.2); Mean Platelet Volume 7.7 fl (7.4-10.4); Monocytes # 0.9 K/mm3 (0.1-1.0); Monocytes % 8.3 % (1.7-9.3); Neutrophils % 45.7 % (37.0-80.0); Platelet Count 442 K/mm3 (142-424); Red Blood Count 4.71 M/mm3 (4.60-6.20); Red Cell Distribution Width 15.2 % (11.5-17.5)
[2020-12-15 01:12] LABS: Chloride 100 mmol/L (98-107); Sodium 140 mmol/L (136-145)
[2020-12-15 01:13] LABS: Potassium 3.9 mmoL/L (3.5-5.1)
[2020-12-15 01:15] LABS: Alanine Aminotransferase 95 U/L (12-78); Albumin Level 4.4 g/dl (3.5-5.0); Alkaline Phosphatase 107 U/L (38-126); Aspartate Amino Transferase 60 U/L (17-59); Bilirubin,Total 0.6 mg/dl (0.2-1.3); Blood Urea Nitrogen 10 mg/dl (9-20); Creatinine Clearance Estimated 96 mL/min (50-200); Estimated Glomerular Filt Rate 101 ml/min (>60); GFR (African American) 122 ML/MIN (>60)
[2020-12-15 01:16] LABS: Albumin/Globulin Ratio 1.1 (1.1-1.8); Anion Gap 12.9 mEq/L (5-15); Calcium 9.8 mg/dl (8.4-10.2); Carbon Dioxide 31 mmol/L (22.0-30.0); Globulin 4.1 g/dL (1.3-3.2); Glucose 120 mg/dl (74-100); Total Protein,Serum 8.5 g/dl (6.3-8.2)
[2020-12-15 02:52] LABS: Microscopic, Urine URINE MICROSCOPIC (MICROSCOPIC)
[2020-12-15 02:54] LABS: Appearance,Urine CLEAR (Clear); Bilirubin,Urine Negative (Negative); Blood, Urine 3+ (Negative); Color,Urine YELLOW (Yellow); Glucose,Urine (UA) Negative (Negative); Ketones,Urine Negative (Negative); Leukocyte Esterase,Urine TRACE (Negative); Nitrate,Urine Negative (Negative); PH,Urine 6.5 (5.0-8.5); Protein,Urine Negative (Negative); Urobilinogen,Urine 0.2 EU/dl (0.2)
--- NOTE | 2020-12-15 03:05 | PC.NURSE ---
called pt's sister to come lemon picker pt. She will be here in ~ 10min. Pt understands to follow up with Urology today
--- NOTE | 2020-12-17 10:15 | [facility].ANESII ---
[facility] Anesthesia Record Part II Discharge Time: 17:17 Destination: floor PACU nurse assessment reviewed?: Yes Patient Condition:: Good Anesthesia Complications:: None Swallowing reflex intact?: Yes Cyanosis?: No Blood Pressure: 131/80 Pulse Rate: 97 Temperature: 98.1 F Mental Status: Alert & Oriented Pain level:: 0 Nausea and/or vomitting:: None Intake, IV Amount: 1,000
[2020-12-17 10:16] VITALS: BP 131/80; PULSE 97; TEMP 36.7
== END 2020-12-15 03:48 | disposition home or self-care (01) ==
PROVIDERS: Emergency Provider Emergency Medicine; PCP Emergency Medicine
DX: N20.0 Calculus of kidney (principal); I10 Essential (primary) hypertension; F17.210 Nicotine dependence, cigarettes, uncomplicated
CPT/HCPCS: 74176; 80053; 81001; 85025; 96365; 96366; 96375; 99283; J2405

== ENCOUNTER 2020-12-15 07:22 | Observation (INO) | payer OTHER, SELFPAY ==
[2020-12-15] VITALS (20 sets, daily range): BP systolic 117–178; BP diastolic 64–104; PULSE 56–98; RESP 12–22; TEMP 36.1–37.2; O2SAT 96–100; BMI 24.3; BMI 20.4
--- NOTE | 2020-12-15 07:29 | HMH.EDGENADL ---
ED Disposition Clinical Impression: Nephrolithiasis Disposition: Admitted As Inpatient Condition on Discharge: Good Referrals: Pro Sanchez MD [Primary Care Provider] - - Critical Care Critical Care Time: No Attestation: On 12/15/20, the high probability of a clinically significant, sudden or life threatening deterioration of the following system(s) required my full and direct attention, intervention and personal management. The time I documented below is in addition to time spent performing reported procedures but includes the following listed in this critical care notation. Medical Decision Making - Pj Inquiry Pt receiving controlled substance: No Orders (Tests/Meds): ED MEDICATIONS Discontinued Medications Generic Name Dose Route Start Last Admin Trade Name Freq PRN Reason Stop Dose Admin Hydromorphone HCl 1 mg 12/15/20 07:25 Hydromorphone 2mg/Ml Syringe IV 12/15/20 07:26 ONCE ONE Ketorolac Tromethamine 30 mg 12/15/20 07:25 Ketorolac 30mg/Ml Vial IV 12/15/20 07:26 ONCE ONE Ondansetron HCl 4 mg 12/15/20 07:25 Ondansetron 4mg/2ml Vial IV 12/15/20 07:26 ONCE ONE Medical Decision Narrative: In summary this is a 55-year-old male who presents to the emergency department with left flank pain. He was seen in our emergency department earlier [facility] where he was diagnosed with a 4 mm obstructing kidney stone with moderate hydronephrosis and hydroureter. He had reassuring labs at this time and no evidence of infection. His pain was controlled with medication and he was discharged. He reports he went home and was able to sleep but woke up with excruciating pain so return to the ER. Given his recent work-up no further imaging or labs deemed necessary at this time. The patient was given Toradol, Zofran, and Dilaudid. Hospitalist was consulted and the patient was admitted for intractable pain and nausea/vomiting. He will require urology evaluation. General Adult HPI - General Stated complaint: possible kidney stones Time Seen by Provider: 12/15/20 07:30 Source of Information: Patient Limitations: No Limitations - History of Present Illness HPI narrative: The patient is a 55-year-old male who denies any past medical history presents to the emergency department with left flank pain. He reports the pain started around 24 November and on chart review the patient had a 6 mm obstructing left distal ureteral stone with moderate left hydronephrosis and hydroureter. He has had mild pain since then however earlier tonight he had severe pain in his left flank associated with vomiting. He presented to our emergency department where repeat CT showed 4 mm obstructing stone with moderate hydronephrosis and hydroureter. The patient had normal kidney function and no leukocytosis. After IV fluids and medication he had complete resolution of his symptoms and was discharged. He reportedly went home and went to sleep and woke up with severe pain again. He called our emergency department and was told that urology clinic opens at 8 AM however he states the pain is too severe and he cannot make it so he returned. - Related Data Home Medications Medication Instructions Recorded Confirmed lisinopriL [Prinivil 20mg Tablet] 20 mg PO DAILY 06/26/19 11/20/19 glecaprevir 100 mg-pibrentasvir 40 1 tab PO DAILY 07/30/19 11/20/19 mg tablet Fluticasone/Vilanterol [Breo 1 inh INHALATION DAILY 11/20/19 11/20/19 Ellipta 100-25 Mcg INH] Metoclopramide HCl [Metoclopramide 5 mg PO TID 11/20/19 11/20/19 5mg Tab] Pantoprazole Sodium [Protonix 40mg 40 mg PO DAILY 11/20/19 11/20/19 tablet] Previous Rx's Medication Instructions Recorded albuterol sulfate 90 mcg/actuation 2 puff INHALATION Q8H PRN #18 g 06/26/19 aerosol inhaler Hydrocodone/Acetaminophen [[place] 1 each PO TID #7 tab 11/20/19 5-325 Tablet] Ondansetron [Zofran 4mg ODT] 4 mg PO BIDP PRN #10 tab 11/20/19 Hy
[2020-12-15 07:49] LABS: Coronavirus 19, PCR Not Detected (NotDetected); Influenza A, PCR Not Detected (NotDetected); Influenza B, PCR Not Detected (NotDetected)
--- NOTE | 2020-12-15 08:40 | HMH.HP ---
*Admission Date: 12/15/20 *Chief complaint: flank pain *History of present illness: this patient presented to the ed - patient is a 55-year-old male who denies any past medical history presents to the emergency department with left flank pain. He reports the pain started around 24 November and on chart review the patient had a 6 mm obstructing left distal ureteral stone with moderate left hydronephrosis and hydroureter. He has had mild pain since then however earlier tonight he had severe pain in his left flank associated with vomiting. He presented to our emergency department where repeat CT showed 4 mm obstructing stone with moderate hydronephrosis and hydroureter. The patient had normal kidney function and no leukocytosis. After IV fluids and medication he had complete resolution of his symptoms and was discharged. He reportedly went home and went to sleep and woke up with severe pain again. He called our emergency department and was told that urology clinic opens at 8 AM however he states the pain is too severe and he cannot make it so he returned.Pt was admitted with intractable pain and dec po intake and will be seen by urology [facility] History I have reviewed the patient's past medical history: Yes Medical History: Reports:: Depression, Hypertension Denies:: Cancer, Diabetes Mellitus Type 1, Diabetes Mellitus Type 2, Internal Pacemaker, MRSA, Seizures *Have you ever received a pneumonia vaccine?: No *Have you received a flu vaccine this season?: No Other Medical History: Reports: Arthritis. Denies: Blood Transfusion Reaction Other Surgeries: Yes: Cholecystectomy, Colonoscopy, Other. No: Pacemaker Amputation: No Fractures: Yes - *Social History Smoking Status: Current every day smoker Tobacco Type: cigarettes # Packs/Day (cigarettes): 1 Alcohol Intake: current Alcohol Intake Frequency:: holidays/special occasions only Substance Use Type: denies use, former substance user, heroin, crack/cocaine *Occupational Status:: employed Housing: house Household Members: family *Travel in the last 8 weeks: None - Psychiatric History Pschychiatric History:: Reports:: Depression Family Hx:: Cancer, Diabetes, Heart Attack Review of Systems - Review of Systems Review of systems:: pertinent systems reviewed and negative unless documented below - Constitutional Denies fever(s) - Eyes Denies change in vision - ENT Denies dizziness - *Cardiovascular Denies chest pain - *Respiratory Denies cough - *Gastrointestinal Denies abdominal pain - *Genitourinary Reports other (flank pain), Denies blood in urine - *Musculoskeletal Denies joint pain - Integumentary/Breasts Denies rash - *Neurologic Denies dizziness, Denies headache(s) - Psychiatric Denies confusion Meds Home Medications Medication Instructions Recorded Confirmed Type albuterol sulfate 90 mcg/actuation 2 puff INHALATION Q8H PRN #18 g 06/26/19 12/15/20 Rx aerosol inhaler lisinopriL [Prinivil 20mg Tablet] 20 mg PO DAILY 06/26/19 12/15/20 History glecaprevir 100 mg-pibrentasvir 40 1 tab PO DAILY 07/30/19 12/15/20 History mg tablet Fluticasone/Vilanterol [Breo 1 inh INHALATION DAILY 11/20/19 12/15/20 History Ellipta 100-25 Mcg INH] Metoclopramide HCl [Metoclopramide 5 mg PO TID 11/20/19 12/15/20 History 5mg Tab] Ondansetron [Zofran 4mg ODT] 4 mg PO BIDP PRN #10 tab 11/20/19 12/15/20 Rx Pantoprazole Sodium [Protonix 40mg 40 mg PO DAILY 11/20/19 12/15/20 History tablet] Hydrocod/Acet 5/325 mg [[place] 1 tab PO Q6HP PRN #10 tab 11/24/20 12/15/20 Rx 5/325mg tablet] Ketorolac Tromethamine [Toradol 10 mg PO Q6HP PRN 3 Days #12 tab 12/15/20 12/15/20 Rx 10mg tablet] MDD 40mg/day Tamsulosin HCl [Flomax 0.4mg 0.4 mg PO DAILY 12/15/20 12/15/20 History capsule] Allergies Allergy/AdvReac Type Severity Reaction Status Date / Time No Known Allergies Allergy Verified 11/20/19 09:58 Exam Vital signs and Lab
--- NOTE | 2020-12-15 08:59 | PC.NURSE ---
report called to floor
--- NOTE | 2020-12-15 11:34 | PC.NURSE ---
Pt. reports he is supposed to take the medications listed on his home meds list, but hasn't because he hasn't been able to get them filled. in a while
--- NOTE | 2020-12-15 12:19 | P.CONPHA_ITS ---
[facility] Pharmacy VTE Monitoring - Patient Demographics Admission date: 12/15/20 Report Date: 12/15/20 Time: 12:20 Allergies/Adverse Reactions: Patient Allergies No Known Allergies Allergy (Verified 11/20/19 09:58) Height: 1.78 m Weight: 64.552 kg Patient Problems: Current Active Problems Nephrolithiasis (Acute) Renal colic on left side (Acute) Hydronephrosis concurrent with and due to calculi of kidney and ureter (Acute) Urinary tract obstruction by kidney stone (Acute) HTN (hypertension) (Acute) Hepatitis C (Acute) Elevated erythrocyte sedimentation rate (Acute) Tobacco use (Acute) - VTE Risk Was VTE Risk Assessment Performed: Yes VTE Score: 2 VTE Risk Level: Very Low Risk - Prophylaxis VTE Prophylaxis Ordered?: Yes Types of VTE Prophylaxis: TEDS Knee High Location of Applied Device: Bilateral Lower Extremeties
--- NOTE | 2020-12-15 13:23 | HMH.CONS ---
*Admission Date: 12/15/20 *Reason for consult:: Left ureteral stone *History of present illness: Patient is a 55-year-old white male admitted today for left flank pain. CT scan revealed a 6 x 4 mm stone in the distal ureter. He was admitted for pain control. He was seen in the emergency room 3 weeks ago for similar symptoms and CT scan at that time again showed a 6 x 4 mm stone. He had associated nausea and vomiting. No fever reported and his white count is 11,000 and his creatinine is 0.8. Review of his CT scans revealed that the stone has not moved in the interim 3 weeks. He has continued to have pain overnight. [facility] History Medical History: Reports:: Depression, Hypertension Denies:: Cancer, Diabetes Mellitus Type 1, Diabetes Mellitus Type 2, Internal Pacemaker, MRSA, Seizures *Have you ever received a pneumonia vaccine?: No *Have you received a flu vaccine this season?: No Other Medical History: Reports: Arthritis. Denies: Blood Transfusion Reaction Other Surgeries: Yes: Cholecystectomy, Colonoscopy, Other. No: Pacemaker Amputation: No Fractures: Yes - *Social History Last grade of school completed: 9th or 10th Smoking Status: Current every day smoker Tobacco Type: cigarettes # Packs/Day (cigarettes): 1 Alcohol Intake: never Alcohol Intake Frequency:: holidays/special occasions only Substance Use Type: denies use, former substance user, heroin, crack/cocaine *Occupational Status:: unemployed Housing: house Household Members: none *Travel in the last 8 weeks: None - Psychiatric History Pschychiatric History:: Reports:: Depression Family Hx:: Cancer, Diabetes, Heart Attack Review of Systems - Review of Systems Review of systems:: pertinent systems reviewed and negative unless documented below - *Neurologic Denies confusion, Denies dizziness, Denies headache(s) Meds Home Medications Medication Instructions Recorded Confirmed Type albuterol sulfate 90 mcg/actuation 2 puff INHALATION Q8H PRN #18 g 06/26/19 12/15/20 Rx aerosol inhaler lisinopriL [Prinivil 20mg Tablet] 20 mg PO DAILY 06/26/19 12/15/20 History glecaprevir 100 mg-pibrentasvir 40 1 tab PO DAILY 07/30/19 12/15/20 History mg tablet Fluticasone/Vilanterol [Breo 1 inh INHALATION DAILY 11/20/19 12/15/20 History Ellipta 100-25 Mcg INH] Metoclopramide HCl [Metoclopramide 5 mg PO TID 11/20/19 12/15/20 History 5mg Tab] Ondansetron [Zofran 4mg ODT] 4 mg PO BIDP PRN #10 tab 11/20/19 12/15/20 Rx Pantoprazole Sodium [Protonix 40mg 40 mg PO DAILY 11/20/19 12/15/20 History tablet] Hydrocod/Acet 5/325 mg [[place] 1 tab PO Q6HP PRN #10 tab 11/24/20 12/15/20 Rx 5/325mg tablet] Ketorolac Tromethamine [Toradol 10 mg PO Q6HP PRN 3 Days #12 tab 12/15/20 12/15/20 Rx 10mg tablet] MDD 40mg/day Tamsulosin HCl [Flomax 0.4mg 0.4 mg PO DAILY 12/15/20 12/15/20 History capsule] Allergies Allergy/AdvReac Type Severity Reaction Status Date / Time No Known Allergies Allergy Verified 11/20/19 09:58 Exam Vital signs and Labs for Last 24 Hours: Temp Pulse Resp BP Pulse Ox 98.2 F 56 L 18 167/86 H 100 12/15/20 09:29 12/15/20 09:29 12/15/20 09:29 12/15/20 09:29 12/15/20 09:29 Laboratory Results - last 24 hr 12/15/20 07:33: SARS-CoV-2 (PCR) Not detected, Influenza A Untype (PCR) Not detected, Influenza Type B (PCR) Not detected I & O for Last 24 hours: Intake & Output 12/12/20 12/13/20 12/14/20 12/15/20 23:59 23:59 23:59 23:59 Weight 64.552 kg - Constitutional no acute distress - *Routine HEENT Exam Head: Present: normocephalic Eye: Present: EOMI, PERRL ENT: Present: mucous membranes moist - *Routine Neck Exam Present: supple. Absent: lymphadenopathy - *Routine Respiratory Exam Absent: accessory muscle use - *Routine Cardiovascular Exam Absent: JVD - *Routine Abdominal Exam Present: soft. Absent: tenderness - *Routine Extremities Exam Absent: cyanosis, clubbing, price
--- NOTE | 2020-12-15 15:57 | P.PN_ITS ---
[facility] Anesthesia Checklist - Patient Identification Patient Identification: Arm Band - Structural Data Admitted From: Inpatient Planned Operative Procedure/s: Ureteroscopy Consent for Planned Operative Procedure(s) Verified: Yes - NPO Status Verified Time NPO: 00:00 - Additional verifications Anesthesia Reactions: No Hx Blood Transfusions: No Blood Transfusion Reaction: No - Airway Assessment C-Spine Mobility Assessed: Yes TMJ Mobility Assessed: Yes Dentition: Poor Dentition - Neurological Assessment Level of Consciousness: Awake Hx Seizures: No Numbness or tingling in extremities: No - Anesthesia Plan Anesthesia Risk discussed: Yes Anesthesia Plan: Verified ASA Class: II Anesthesia Type: General [facility] History I have reviewed the patient's past medical history: Yes Medical History: Reports:: Depression, Gastroesophageal Reflux Disease(GERD), Hypertension Denies:: Cancer, Diabetes Mellitus Type 1, Diabetes Mellitus Type 2, Internal Pacemaker, MRSA, Seizures *Have you ever received a pneumonia vaccine?: No *Have you received a flu vaccine this season?: No Other Medical History: Reports: Arthritis. Denies: Blood Transfusion Reaction Anesthesia experience/problems:: None Other Surgeries: Yes: Cholecystectomy, Colonoscopy, Other. No: Pacemaker Amputation: No Fractures: Yes - *Social History Last grade of school completed: 9th or 10th Smoking Status: Current every day smoker Tobacco Type: cigarettes # Packs/Day (cigarettes): 1 Alcohol Intake: never Alcohol Intake Frequency:: holidays/special occasions only Substance Use Type: denies use, former substance user, heroin, crack/cocaine *Occupational Status:: unemployed Housing: house Household Members: none *Travel in the last 8 weeks: None - Psychiatric History Pschychiatric History:: Reports:: Depression Family Hx:: Cancer, Diabetes, Heart Attack
--- NOTE | 2020-12-15 16:10 | PC.NURSE ---
Received report at 1600 on pt. He is currently in surgery at this time.
--- NOTE | 2020-12-15 16:34 | XR_ITS ---
PROCEDURE: XR KUB CLINICAL INDICATION: STONE EXTRACTION COMPARISON: CT CT ABDOMEN PELVIS WO CON from 12/15/2020 FINDINGS: Two images submitted during the ureteroscopy shows ureteral scope and guidewire in place with the wire curled in the left upper quadrant IMPRESSION: Status post stone extraction with fluoroscopic assistance Dictated by: Bj Stein MD 12/15/2020 17:04 Bj Stein MD in OV 12/15/2020 17:04
--- NOTE | 2020-12-15 16:36 | P.PN_ITS ---
[facility] Anesthesia Record Part I Intake, IV Amount: 700 Estimated blood loss (mL): 0 Urine output (mL): 0 Blood Pressure: 117/67 SaO2: 96 Pulse Rate: 96 Respiratory Rate: 20 Temperature: 97 F Patient is:: Drowsy, Oral/Nasal airway Stable to PACU at:: 16:37
--- NOTE | 2020-12-15 16:45 | HMH.OPNOTE ---
Date of procedure: 12/15/20 Pre-op Diagnosis:: 6 mm left distal ureteral stone Post-op Diagnosis:: Same Procedure performed:: Left ureteroscopy, laser lithotripsy, stone extraction. Surgeon:: Waldo Collado MD INSURANCE ACCOUNT EXECUTIVE:: Tommy Way Anesthesia: LMA Estimated blood loss (mL): 0 Clinical Note:: 55-year-old white male admitted for left flank pain. CT scan shows a 6 x 4 mm distal ureteral stone. Patient has continued to have left flank pain and nausea. Operative findings:: Radiolucent stone impacted against the distal left ureter. Operative note:: Patient taken to the operating room after informed consent was obtained. He was placed on the operating table in the supine position and general anesthesia administered. Preoperative antibiotics and sequential compression devices placed and turned on. He was then placed into the dorsal lithotomy position and prepped draped in the standard surgical fashion. 22 [place] cystoscope was attempted to be placed into the urethral meatus but there was some narrowing there so the urethra was dilated to 26 [place] with the [place] sounds. After dilation the 22 [place] scope passed into the urethra without difficulty and into the bladder without difficulty. The bladder was examined in a systematic fashion. There was no evidence of mucosal abnormalities, stones, diverticula or trabeculation. Ureteral orifices in their normal anatomic position. A guidewire was passed into the left ureteral orifice and there was some resistance distally but we were able to pass the wire into the left renal pelvis confirmed on fluoroscopy. We then removed the cystoscope and placed the semirigid ureteroscope into the urethral meatus and into the bladder and into the left ureteral orifice and up to the level of the stone. The stone appeared to be impacted against the anterior ureteral wall. The 200 nm laser fiber was passed through the scope and the stone was manipulated off of the wall and the stone fragmented into small pieces. The stone was consistent with a uric acid stone in its appearance and the fact that it did not show up on fluoroscopy. After the stone was fragmented the fragments were extracted with use of the basket. The ureteroscope then removed and the cystoscope was replaced and the bladder emptied and the wire removed. There was efflux of urine from the left ureteral orifice after the case and a stent was not placed. Bladder was emptied and the scope removed. Urojet placed into the urethra for comfort measures. Patient tolerated the procedure well there are no complications. Condition: stable Disposition: PACU Specimens:: Stone fragments were very small and were not sent Complications:: None
--- NOTE | 2020-12-15 20:00 | PC.NURSE ---
Pt back to floor @ 1715, has been asleep and resting without any problems. VSS. CB in reach.
[2020-12-16] VITALS: BP 140/68; PULSE 99; RESP 16; TEMP 36.8; O2SAT 99
--- NOTE | 2020-12-16 03:41 | PC.NURSE ---
Pt alert and oriented x 4. No acute changes t/o shift. Pt has had some c/o pain but was managed with PRN medication per mar. No c/o SOA this shift. VSS t/o shift, NAD. CB in reach will continue to monitor.
[2020-12-16 05:00] VITALS: BMI 20.3
[2020-12-16 07:10] LABS: Basophils # 0.1 K/mm3 (0-0.2); Basophils % 0.4 % (0.1-2.0); Eosinophils # 0.1 K/mm3 (0.0-0.4); Eosinophils % 0.5 % (0.1-12.0); Hemoglobin 12.5 g/dL (14.1-18.0); Lymphocytes # 2.5 K/mm3 (0.7-4.5); Lymphocytes % 20.1 % (10-50); Mean Corpuscular HGB Conc 32.9 g/dL (31.8-35.4); Mean Corpuscular Hemoglobin 31.1 pg (27.0-31.2); Mean Corpuscular Volume 94.5 fl (80-94); Mean Platelet Volume 8.1 fl (7.4-10.4); Monocytes # 0.9 K/mm3 (0.1-1.0); Monocytes % 7.1 % (1.7-9.3); Neutrophils # 8.9 K/mm3 (1.8-7.8); Neutrophils % 71.9 % (37.0-80.0); Platelet Count 320 K/mm3 (142-424); Red Blood Count 4.02 M/mm3 (4.60-6.20); Red Cell Distribution Width 15.1 % (11.5-17.5); White Blood Count 12.4 K/mm3 (4.8-10.8)
[2020-12-16 07:16] LABS: Anion Gap 9.4 mEq/L (5-15); Blood Urea Nitrogen 7 mg/dl (9-20); Calcium 8.4 mg/dl (8.4-10.2); Carbon Dioxide 25 mmol/L (22.0-30.0); Chloride 105 mmol/L (98-107); Creatinine Clearance Estimated 130 mL/min (50-200); Estimated Glomerular Filt Rate 141 ml/min (>60); GFR (African American) 171 ML/MIN (>60); Glucose 113 mg/dl (74-100); Potassium 3.4 mmoL/L (3.5-5.1); Sodium 136 mmol/L (136-145)
--- NOTE | 2020-12-16 07:48 | HMH.PHAINT ---
MEDICATION RECONCILIATION COMPLETED ON PATIENT USING EXTERNAL FILL HISTORY FROM PHARMACY AND LIST FROM MD OFFICE. PATIENT HAD HEP C TREATMENT INITIATED 07/2019 AND TYPICAL TREATMENT LENGTH IS 12 WEEKS. DRUG WAS REMOVED SINCE COURSE WAS COMPLETED. -DARIA OZUNA, DONGD
[2020-12-16 08:00] VITALS: BP 148/86; PULSE 84; RESP 20; TEMP 36.7; O2SAT 98
[2020-12-16 11:42] VITALS: BP 157/79; PULSE 79; RESP 18; TEMP 36.9; O2SAT 99
--- NOTE | 2020-12-16 12:31 | HMH.CONFU ---
Internal Medicine - PN: Subj *Date: 12/16/20 *Time: 12:31 Interval history: Patient is postop day 1 status post left ureteroscopy stone extraction. He states his left flank pain is much improved and he is tolerating diet and feeling much better. Exam Vital signs and Labs for Last 24 Hours: Temp Pulse Resp BP Pulse Ox 98.4 F 79 18 157/79 H 99 12/16/20 11:42 12/16/20 11:42 12/16/20 11:42 12/16/20 11:42 12/16/20 11:42 Laboratory Results - last 24 hr 12/16/20 06:28: WBC 12.4 H, RBC 4.02 L, Hgb 12.5 L, Hct 38.0 L, MCV 94.5 H, MCH 31.1, MCHC 32.9, RDW 15.1, Plt Count 320 D, MPV 8.1, Neut % (Auto) 71.9, Lymph % (Auto) 20.1, [place] % (Auto) 7.1, Eos % (Auto) 0.5, Baso % (Auto) 0.4, Neut # (Auto) 8.9 H, Lymph # (Auto) 2.5, [place] # (Auto) 0.9, Eos # (Auto) 0.1, Baso # (Auto) 0.1 12/16/20 06:28: Sodium 136, Potassium 3.4 L, Chloride 105, Carbon Dioxide 25, Anion Gap 9.4, BUN 7 L D, Creatinine 0.60 L D, Estimated Creat Clear 130, Estimated GFR 141, Est GFR ( Amer) 171 D, Glucose 113 H, Calcium 8.4 I & O for Last 24 hours: Intake & Output 12/13/20 12/14/20 12/15/20 12/16/20 23:59 23:59 23:59 23:59 Intake Total 700 / 700 Output Total 1000 / 1000 1650 / 1650 Balance -300 / -300 -1650 / -1650 Weight 64.552 kg 64.552 kg - Constitutional no acute distress - *Routine HEENT Exam Head: Present: normocephalic Eye: Present: EOMI, PERRL ENT: Present: mucous membranes moist - *Routine Neck Exam Present: supple. Absent: lymphadenopathy - *Routine Respiratory Exam Absent: accessory muscle use - *Routine Cardiovascular Exam Absent: JVD - *Routine Abdominal Exam Present: soft. Absent: tenderness - *Routine Extremities Exam Absent: cyanosis, clubbing, edema - *Routine Skin Exam Present: warm. Absent: rash - *Routine Neurological Exam Present: alert, oriented X3 Assessment and Plan (1) Renal colic on left side Status: Acute Category: Medical Code(s): N23 - Unspecified renal colic (2) Hydronephrosis concurrent with and due to calculi of kidney and ureter Status: Acute Category: Medical Code(s): N13.2 - Hydronephrosis with renal and ureteral calculous obstruction Postop day 1 status post left ureteroscopy and stone extraction. Patient is feeling much better and we discussed that his stones are likely uric acid stones and recommendations to increase his water intake and decrease meats were given. A prescription for allopurinol 300 mg daily was also given. He may return as needed. (3) Urinary tract obstruction by kidney stone Status: Acute Category: Medical Code(s): N20.0 - Calculus of kidney; N13.8 - Other obstructive and reflux uropathy (4) HTN (hypertension) Status: Acute Qualifiers: Hypertension type: primary hypertension Qualified Code(s): I10 - Essential (primary) hypertension Category: Medical Code(s): I10 - Essential (primary) hypertension (5) Elevated erythrocyte sedimentation rate Status: Acute Category: Medical Code(s): R70.0 - Elevated erythrocyte sedimentation rate (6) Hepatitis C Status: Acute Qualifiers: Viral hepatitis chronicity: unspecified Hepatic coma status: without hepatic coma Qualified Code(s): B19.20 - Unspecified viral hepatitis C without hepatic coma Category: Medical Code(s): B19.20 - Unspecified viral hepatitis C without hepatic coma (7) Tobacco use Status: Acute Category: Social Hx Code(s): Z72.0 - Tobacco use
--- NOTE | 2020-12-16 12:52 | PC.NURSE ---
I went in to check on patient due to being told that patient was wanting to leave AMA. He stated I don't mean to be an asshole but when it comes to my family I'm an asshole, especially when it comes to my sister . Pt went on to explain his sister had od'd and his mom was on her way to pick him up and he was leaving now. He allowed me to remove his IV and agreed to sign AMA paper. I gave him a copy of AMA paper with Dr Sanchez and Dr Scott phone number on it and encouraged him to call their office [place] for dc instructions and to inquire about medication and follow up. He verbalized understanding and walked out the door.
--- NOTE | 2020-12-16 12:54 | [facility].DCSUM ---
General - General Admission date:: 12/15/20 Discharge date: 12/16/20 HPI HPI: this patient presented to the ed - patient is a 55-year-old male who denies any past medical history presents to the emergency department with left flank pain. He reports the pain started around 24 November and on chart review the patient had a 6 mm obstructing left distal ureteral stone with moderate left hydronephrosis and hydroureter. He has had mild pain since then however earlier tonight he had severe pain in his left flank associated with vomiting. He presented to our emergency department where repeat CT showed 4 mm obstructing stone with moderate hydronephrosis and hydroureter. The patient had normal kidney function and no leukocytosis. After IV fluids and medication he had complete resolution of his symptoms and was discharged. He reportedly went home and went to sleep and woke up with severe pain again. He called our emergency department and was told that urology clinic opens at 8 AM however he states the pain is too severe and he cannot make it so he returned.Pt was admitted with intractable pain and dec po intake and will be seen by urology Hospital Course Hospital Course: this patient presented to the ed - patient is a 55-year-old male who denies any past medical history presents to the emergency department with left flank pain. He reports the pain started around 24 November and on chart review the patient had a 6 mm obstructing left distal ureteral stone with moderate left hydronephrosis and hydroureter. He has had mild pain since then however earlier tonight he had severe pain in his left flank associated with vomiting. He presented to our emergency department where repeat CT showed 4 mm obstructing stone with moderate hydronephrosis and hydroureter. The patient had normal kidney function and no leukocytosis. After IV fluids and medication he had complete resolution of his symptoms and was discharged. He reportedly went home and went to sleep and woke up with severe pain again. He called our emergency department and was told that urology clinic opens at 8 AM however he states the pain is too severe and he cannot make it so he returned.Pt was admitted with intractable pain and dec po intake and will be seen by urology 12/15/20 KUB XR: FINDINGS: Two images submitted during the ureteroscopy shows ureteral scope and guidewire in place with the wire curled in the left upper quadrant IMPRESSION: Status post stone extraction with fluoroscopic assistance Dictated by: Bj Stein MD 12/15/20 left ureteroscopy stone extraction. Radiolucent stone impacted against the distal left ureter. Operative note:: Patient taken to the operating room after informed consent was obtained. He was placed on the operating table in the supine position and general anesthesia administered. Preoperative antibiotics and sequential compression devices placed and turned on. He was then placed into the dorsal lithotomy position and prepped draped in the standard surgical fashion. 22 [place] cystoscope was attempted to be placed into the urethral meatus but there was some narrowing there so the urethra was dilated to 26 [place] with the Yin sounds. After dilation the 22 [place] scope passed into the urethra without difficulty and into the bladder without difficulty. The bladder was examined in a systematic fashion. There was no evidence of mucosal abnormalities, stones, diverticula or trabeculation. Ureteral orifices in their normal anatomic position. A guidewire was passed into the left ureteral orifice and there was some resistance distally but we were able to pass the wire into the left renal pelvis confirmed on fluoroscopy. We then removed the cystoscope and placed the semirigid ureteroscope into the urethral meatus and into the bladder and into the left ureteral orifice and up to the level of the stone. The stone appeared to be impacted against the anter
== END 2020-12-16 12:51 | disposition home or self-care (01) ==
LOC: ER 07:35 → 2ND 08:26
PROVIDERS: Urology; Admitting Provider Emergency Medicine; Emergency Provider Emergency Medicine; PCP Emergency Medicine; Visit Provider Emergency Medicine
PROC: (CPT 52352; principal; 2020-12-15 15:30)
DX: N13.2 Hydronephrosis with renal and ureteral calculous obstruction (principal); N13.8 Other obstructive and reflux uropathy; B19.20 Unspecified viral hepatitis C without hepatic coma; Z20.822 Contact with and (suspected) exposure to COVID-19; Z79.899 Other long term (current) drug therapy; F17.210 Nicotine dependence, cigarettes, uncomplicated; I10 Essential (primary) hypertension
CPT/HCPCS: 52353; 52352; 36415; 74018; 74176; 76000; 80048; 80053; 81001; 85025; 96365; 96366; 96375; 96376; 99281; C9803; G0378; J2405; U0003; U0005